=== PATIENT | female | born 1930 | race Caucasian/White ===

== ENCOUNTER → 2016-09-22 | Outpatient (CLI) | payer MEDICARE, OTHER | LOC: MW.CHIM 08:00 | CPT/HCPCS: 99214 ==

== ENCOUNTER → 2016-09-25 | Outpatient (CLI) | payer MEDICARE, OTHER | LOC: MW.CHIM 13:30 | CPT/HCPCS: G0463 ==

== ENCOUNTER → 2016-10-17 | Outpatient (CLI) | payer MEDICARE, OTHER ==
--- NOTE | 2016-10-17 14:23 | CR ---
EXAMINATION: Two-view chest (PA and Lateral views). HISTORY: Atrial fibrillation. FINDINGS: The trachea is midline. The heart is borderline in size. The cardiomediastinal silhouette is within normal limits. No pulmonary infiltrates, effusions or pneumothorax. Osseous structures appear osteopenic. IMPRESSION: No acute cardiopulmonary process.
== END ==
LOC: MW.CHIM 13:01
PROVIDERS: ATTEND Internal Medicine
DX: I48.91 Unspecified atrial fibrillation (principal); I10 Essential (primary) hypertension; E11.9 Type 2 diabetes mellitus without complications; I50.9 Heart failure, unspecified; I12.9 Hypertensive chronic kidney disease with stage 1 through stage 4 chronic kidney disease, or unspecified chronic kidney disease; M19.90 Unspecified osteoarthritis, unspecified site; E78.5 Hyperlipidemia, unspecified; R26.2 Difficulty in walking, not elsewhere classified
CPT/HCPCS: 36415; 71020; 71020-26; 80053; 80061; 83036; 83880; 85025; 99214

== ENCOUNTER → 2016-10-19 | Outpatient (CLI) | payer MEDICARE, OTHER ==
--- NOTE | 2016-10-19 14:38 | CR ---
EXAMINATION: Left shoulder HISTORY: Pain COMPARISON: None TECHNIQUE: 3 views FINDINGS/IMPRESSION: The left humerus is high riding with severe glenohumeral osteoarthritic changes . Mild acromioclavicular osteoarthritic changes are noted. No fracture or acute osseous abnormality.
--- NOTE | 2016-10-19 14:43 | CR ---
EXAMINATION: Pelvis and left hip HISTORY: Pain COMPARISON: 11/02/2014 TECHNIQUE: AP pelvis and 2 views of the left hip FINDINGS: There is a linear ossific density noted projecting inferior to the left hip on the AP view s of uncertain etiology. Mild joint space narrowing is noted within the left hip with subchondral sc lerosis. The SI joints are symmetric. Bone mineralization appears normal to slightly osteopenic. The iliopectineal lines are intact. IMPRESSION: 1. Linear ossific density projecting inferior to the left hip on the AP view. This could represent a n avulsion fracture versus soft tissue calcification. 2. Otherwise mild degenerative changes noted within the left hip.
--- NOTE | 2016-10-19 16:00 | CR ---
EXAMINATION: Lumbar spine HISTORY: Left hip pain COMPARISON: None TECHNIQUE: AP and lateral views FINDINGS: There is a trace levocurvature of the lumbar spine. The lumbar vertebral body heights appe ar maintained. There is mild wedging of the T12 vertebral body. There is grade 1 anterolisthesis of L4 on L5 with underlying facet hypertrophy. The visualized osseous structures appear osteopenic. No definite fracture or dislocation. Vascular calcifications are noted. The SI joints are symmetric. IMPRESSION: 1. Osteopenia. 2. Mild to moderate degenerative changes within the lumbar spine. 3. Mild wedging of the T12 vertebral body.
== END ==
LOC: MW.CHORTHO 07:52
PROVIDERS: ATTEND Orthopaedic Surgery
DX: M25.512 Pain in left shoulder (principal); M25.552 Pain in left hip; M53.9 Dorsopathy, unspecified; M43.16 Spondylolisthesis, lumbar region; M12.812 Other specific arthropathies, not elsewhere classified, left shoulder
CPT/HCPCS: 72100; 72100-26; 73030-26-LT; 73030-LT; 73502-26-LT; 73502-LT; 99203

== ENCOUNTER → 2016-10-25 | Outpatient (CLI) | payer MEDICARE, OTHER | LOC: MW.CHIM 08:00 | PROVIDERS: ATTEND Internal Medicine | DX: I48.0 Paroxysmal atrial fibrillation (principal); I50.9 Heart failure, unspecified; Q21.1 Atrial septal defect; Z87.828 Personal history of other (healed) physical injury and trauma | CPT/HCPCS: G0463 ==

== ENCOUNTER 2018-01-25 10:49 | Observation (INO) | payer MEDICARE, OTHER ==
[2018-01-25] MEDS ORDERED: Sodium Chloride 0.9% 2.5 ML Syringe FLUSH PRN (11:04)
[2018-01-25] MEDS ORDERED: Sodium Chloride 0.9% 10 ML Syringe FLUSH PRN (11:04)
[2018-01-25] MEDS ORDERED: Famotidine 20 MG/2 ML SDV IVPUSH ONE (11:04)
[2018-01-25] MEDS ORDERED: Aspirin 81 MG Tab.Chew PO ONE (11:04)
[2018-01-25] MEDS ORDERED: Sodium Chloride 0.9% 1,000 ML IV ONE (11:05)
[2018-01-25] MEDS ORDERED: Nitroglycerin 0.4 MG Tab.SL SL PRN (11:07)
--- NOTE | 2018-01-25 11:07 | EDM.PDOC ---
ED HPI GENERAL MEDICAL PROBLEM - General Chief Complaint: Cardiovascular Problem Stated Complaint: CHEST PAIN Time Seen by Provider: 01/25/18 11:00 Source of Information: Reports: Patient History Limitations: Reports: No Limitations - History of Present Illness INITIAL COMMENTS - FREE TEXT/NARRATIVE: HISTORY AND PHYSICAL: []87-year-old female presents to the emergency room with pressure to her chest History of Present Illness: []Patient states the chest pain started about 10:00 last night she took her regular aspirin 81 mg Pain continued to the night and now presents at 11 AM today complaining just of pressure. Patient states the last time she had chest pressure she was sent to [place] for heart surgery. Review of Systems: As per history of present illness and below otherwise all systems reviewed and negative. Past medical history: As per history of present illness and as reviewed below otherwise noncontributory. Surgical history: As per history of present illness and as reviewed below otherwise noncontributory. Social history: No reported history of drug or alcohol abuse. Family history: As per history of present illness and as reviewed below otherwise noncontributory. Physical exam: HEENT: Atraumatic, normocehpalic, pupils reactive, negative for conjunctival pallor or scleral icterus, mucous membranes moist, throat clear, neck supple, nontender, trachea midline. Lungs: Clear to auscultation, breath sounds equal bilaterally, chest non tender. Heart: S1S2, negative for clicks, rubs, or JVD. Atrial fibrillation. Abdomen: Soft, nondistended, nontender. Negative for masses or hepatossplenmegaly. Negative for costovertebral tenderness. Pelvis: Stable nontender. Genitourinary: Deferred. Rectal: Deferred Extremities: Atraumatic, negative for cords or calf pain. Neurovascular unremarkable. Neuro: Awake, alert, oriented. Cranial nerves II through XII unremarkable. Cerebellum unremarkable. Motor and sensory unremarkable throughout. Exam nonfocal. Discussed this case with Dr. Lopez who is accepted patient for observation on telemetry rule out [place] Discussed with the patient and her son Diagnostics: []EKG CBC CMP amylase lipase chest x-ray troponin Therapeutics: []1 L normal saline 500 bolus and then set at 125 Impression: []Chest pressure Plan: []Refer to observation on telemetry Definitive disposition and diagnosis as appropriate pending reevaluation and review of above. Onset: Sudden Duration: Hour(s): (13) Quality: Reports: Ache, Pressure Severity: Moderate Improves with: Reports: None Worsens with: Reports: None Associated Symptoms: Reports: No Other Symptoms Chest Pain Score (Numeric/FACES): 6 - Related Data Allergies Allergy/AdvReac Type Severity Reaction Status Date / Time No Known Allergies Allergy Verified 01/25/18 11:03 Home Meds: Home Meds Ascorbate Calcium [Vitamin C] 500 mg PO DAILY 11/02/14 [History] Aspirin [Cecilio Chewable Aspirin] 81 mg PO DAILY 11/02/14 [History] Diltiazem HCl [Diltiazem 24Hr ER] 240 mg PO DAILY 11/02/14 [History] Furosemide [Lasix] 20 mg PO DAILY 11/02/14 [History] Latanoprost [Xalatan 0.005% Ophth Soln] 2.5 ml OP BEDTIME 11/02/14 [History] Multivitamin [Multivitamins] 1 each PO DAILY 11/02/14 [History] Potassium Gluconate [Potassium] 595 mg PO DAILY 11/02/14 [History] Ubidecarenone [Coq-10] 100 mg PO DAILY 11/02/14 [History] atorvaSTATin [Lipitor] 20 mg PO ONETIME 11/02/14 [History] Acetaminophen [Tylenol Extra Strength] 500 mg PO Q4H PRN 09/04/16 [History] Ascorbic Acid 500 mg PO DAILY 09/04/16 [History] Aspirin 81 mg PO BRK 09/04/16 [History] Diltiazem [Dilacor XR] 240 mg PO DAILY 09/04/16 [History] Lutein/Minerals/Vit A,C & E [Ocuvite] 1 tab PO DAILY 09/05/16 [History] Metoprolol Tartrate 50 mg PO BID 09/05/16 [History] Benzonatate [Tessalon Perles] 100 mg PO TID PRN #30 cap 09/07/16 [Rx] Levofloxacin [Levaquin] 750 mg PO DAILY #5 tablet 09/07/16 [Rx] Oseltamivir [Tamiflu] 30 mg PO BID #4 bottle 09/07/16 [Rx] guaiFENesin [Mucinex] 600 mg PO BID #14 tab.er 09/07/16 [Rx] Past Medical History HEENT History: Reports: Impaired Vision Cardiovascular History: Reports: Afib, High Cholesterol, Hypertension Respiratory History: Reports: None Genitourinary History: Reports: None [employer] 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: Musculoskeletal History: Reports: Arthritis Neurological History: Reports: None Psychiatric History: Reports: None Endocrine/Metabolic History: Reports: Diabetes, Type II Hematologic History: Reports: None Dermatologic History: Reports: None - Infectious Disease History Infectious Disease History: Reports: C-Difficile, Measles, Mumps, Rubella - Past Surgical History Cardiovascular Surgical History: Reports: Other (See Below) Social & Family History - Family History Family Medical History: Noncontributory - Caffeine Use Caffeine Use: Reports: Coffee, Tea - Living Situation & Occupation Living situation: Reports: with Spouse Occupation: Retired ED ROS GENERAL - Review of Systems Review Of Systems: ROS reveals no pertinent complaints other than HPI. ED EXAM, GENERAL - Physical Exam Exam: See Below (see dictation) EKG INTERPRETATION EKG Date: 01/25/18 Rhythm: A-Fib Comparison: Change From Previous EKG (09/25/16 SR) Course - Vital Signs Last Recorded V/S: Last Vital Signs Temp 36.6 C 01/25/18 10:59 Pulse 106 H 01/25/18 12:03 Resp 18 01/25/18 12:03 BP 167/63 H 01/25/18 12:03 Pulse Ox 95 01/25/18 12:03 - Orders/Labs/Meds Orders: Active Orders 24 hr Category Date Time Status Patient Status [ADT] Stat ADT 01/25/18 12:41 Active Cardiac Monitoring [RC] . DIRECTED Care 01/25/18 11:04 Active EKG Documentation Completion [RC] STAT Care 01/25/18 11:04 Active Pulse Oximetry [RC] ASDIRECTED Care 01/25/18 11:04 Active UA W/MICROSCOPIC [URIN] Stat Lab 01/25/18 11:30 Ordered Nitroglycerin [Nitrostat] Med 01/25/18 11:07 Active 0.4 mg SL Q5M PRN Sodium Chloride 0.9% [Saline Flush] Med 01/25/18 11:04 Active 10 ml FLUSH ASDIRECTED PRN Sodium Chloride 0.9% [Saline Flush] Med 01/25/18 11:04 Active 2.5 ml FLUSH ASDIRECTED PRN Saline Lock Insert [OM.PC] Stat Oth 01/25/18 11:04 Ordered Medication Orders Nitroglycerin (Nitrostat) 0.4 mg SL Q5M PRN PRN Reason: Chest Pain Sodium Chloride (Saline Flush) 10 ml FLUSH ASDIRECTED PRN PRN Reason: Keep Vein Open Sodium Chloride (Saline Flush) 2.5 ml FLUSH ASDIRECTED PRN PRN Reason: Keep Vein Open Labs: Laboratory Tests 01/25/18 01/25/18 01/25/18 Range/Units 11:25 11:25 11:25 WBC 5.64 (4.0-11.0) K/uL RBC 4.29 L (4.30-5.90) M/uL Hgb 13.4 (12.0-16.0) g/dL Hct 40.2 (36.0-46.0) % MCV 93.7 (80.0-98.0) fL MCH 31.2 (27.0-32.0) pg MCHC 33.3 (31.0-37.0) g/dL RDW Std Deviation 46.3 (28.0-62.0) fl RDW Coeff of Emily 14 (11.0-15.0) % Plt Count 262 (150-400) K/uL MPV 10.00 (7.40-12.00) fL Neut % (Auto) 54.8 (48.0-80.0) % Lymph % (Auto) 28.4 (16.0-40.0) % Cavalier % (Auto) 12.6 (0.0-15.0) % Eos % (Auto) 3.7 (0.0-7.0) % Baso % (Auto) 0.5 (0.0-1.5) % Neut # (Auto) 3.1 (1.4-5.7) K/uL Lymph # (Auto) 1.6 (0.6-2.4) K/uL Cavalier # (Auto) 0.7 (0.0-0.8) K/uL Eos # (Auto) 0.2 (0.0-0.7) K/uL Baso # (Auto) 0.0 (0.0-0.1) K/uL Nucleated RBC % 0.0 /100WBC Nucleated RBCs # 0 K/uL INR 1.04 Sodium 141 (136-145) mmol/L Potassium 4.3 (3.5-5.1) mmol/L Chloride 104 (98-107) mmol/L Carbon Dioxide 28.3 (21.0-32.0) mmol/L BUN 32 H (7.0-18.0) mg/dL Creatinine 1.3 H (0.6-1.0) mg/dL Est Cr Clr Drug Dosing TNP Estimated GFR (MDRD) 38.9 ml/min Glucose 115 H (74-106) mg/dL Calcium 9.1 (8.5-10.1) mg/dL Total Bilirubin 0.5 (0.2-1.0) mg/dL AST 21 (15-37) IU/L ALT 15 (14-63) IU/L Alkaline Phosphatase 64 (46-116) U/L Troponin I < 0.050 (0.000-0.056) ng/mL Total Protein 6.7 (6.4-8.2) g/dL Albumin 3.7 (3.4-5.0) g/dL Globulin 3.0 (2.0-3.5) g/dL Albumin/Globulin Ratio 1.2 L (1.3-2.8) Amylase 82 (25-115) U/L Lipase 259 (73-393) U/L Urine Color Urine Appearance Urine pH (5.0-8.0) Ur Specific Maria Stein (1.001-1.035) Urine Protein (NEGATIVE) mg/dL Urine Glucose (UA) (NEGATIVE) mg/dL Urine Ketones (NEGATIVE) mg/dL Urine Occult Blood (NEGATIVE) Urine Nitrite (NEGATIVE) Urine Bilirubin (NEGATIVE) Urine Urobilinogen (<2.0) EU/dL Ur Leukocyte Esterase (NEGATIVE) Urine RBC (0-2/HPF) Urine WBC (0-5/HPF) Ur Epithelial Cells (NONE-FEW) Urine Bacteria (NEGATIVE) 01/25/18 Range/Units 11:30 WBC (4.0-11.0) K/uL RBC (4.30-5.90) M/uL Hgb (12.0-16.0) g/dL Hct (36.0-46.0) % MCV (80.0-98.0) fL MCH (27.0-32.0) pg MCHC (31.0-37.0) g/dL RDW Std Deviation (28.0-62.0) fl RDW Coeff of Emily (11.0-15.0) % Plt Count (150-400) K/uL MPV (7.40-12.00) fL Neut % (Auto) (48.0-80.0) % Lymph % (Auto) (16.0-40.0) % Cavalier % (Auto) (0.0-15.0) % Eos % (Auto) (0.0-7.0) % Baso % (Auto) (0.0-1.5) % Neut # (Auto) (1.4-5.7) K/uL Lymph # (Auto) (0.6-2.4) K/uL Cavalier # (Auto) (0.0-0.8) K/uL Eos # (Auto) (0.0-0.7) K/uL Baso # (Auto) (0.0-0.1) K/uL Nucleated RBC % /100WBC Nucleated RBCs # K/uL INR Sodium (136-145) mmol/L Potassium (3.5-5.1) mmol/L Chloride (98-107) mmol/L Carbon Dioxide (21.0-32.0) mmol/L BUN (7.0-18.0) mg/dL Creatinine (0.6-1.0) mg/dL Est Cr Clr Drug Dosing Estimated GFR (MDRD) ml/min Glucose (74-106) mg/dL Calcium (8.5-10.1) mg/dL Total Bilirubin (0.2-1.0) mg/dL AST (15-37) IU/L ALT (14-63) IU/L Alkaline Phosphatase (46-116) U/L Troponin I (0.000-0.056) ng/mL Total Protein (6.4-8.2) g/dL Albumin (3.4-5.0) g/dL Globulin (2.0-3.5) g/dL Albumin/Globulin Ratio (1.3-2.8) Amylase (25-115) U/L Lipase (73-393) U/L Urine Color YELLOW Urine Appearance CLEAR Urine pH 5.5 (5.0-8.0) Ur Specific Maria Stein 1.010 (1.001-1.035) Urine Protein NEGATIVE (NEGATIVE) mg/dL Urine Glucose (UA) NEGATIVE (NEGATIVE) mg/dL Urine Ketones NEGATIVE (NEGATIVE) mg/dL Urine Occult Blood NEGATIVE (NEGATIVE) Urine Nitrite NEGATIVE (NEGATIVE) Urine Bilirubin NEGATIVE (NEGATIVE) Urine Urobilinogen 0.2 (<2.0) EU/dL Ur Leukocyte Esterase NEGATIVE (NEGATIVE) Urine RBC 0-1 (0-2/HPF) Urine WBC 0-2 (0-5/HPF) Ur Epithelial Cells FEW (NONE-FEW) Urine Bacteria RARE (NEGATIVE) Meds: Medications Generic Name Dose Route Start Last Admin Trade Name Freq PRN Reason Stop Dose Admin Nitroglycerin 0.4 mg 01/25/18 11:07 Nitrostat SL Q5M PRN Chest Pain Sodium Chloride 10 ml 01/25/18 11:04 Saline Flush FLUSH ASDIRECTED PRN Keep Vein Open Sodium Chloride 2.5 ml 01/25/18 11:04 Saline Flush FLUSH ASDIRECTED PRN Keep Vein Open Discontinued Medications Generic Name Dose Route Start Last Admin Trade Name Freq PRN Reason Stop Dose Admin Aspirin 324 mg 01/25/18 11:04 01/25/18 11:34 Aspirin PO 01/25/18 11:05 324 mg ONETIME ONE Administration Famotidine 20 mg 01/25/18 11:04 01/25/18 11:35 Pepcid IVPUSH 01/25/18 11:05 20 mg ONETIME ONE Administration Sodium Chloride 1,000 mls @ 999 mls/hr 01/25/18 11:05 01/25/18 11:34 Normal Saline IV 01/25/18 12:05 999 mls/hr STAT ONE Administration Departure - Departure Time of Disposition: 12:56 Disposition: Refer to Observation Condition: Good Clinical Impression: Chest pain Qualifiers: Chest pain type: unspecified Qualified Code(s): R07.9 - Chest pain, unspecified Afib Qualifiers: Atrial fibrillation type: paroxysmal Qualified Code(s): I48.0 - Paroxysmal atrial fibrillation Referrals: PCP,None [Primary Care Provider] - Forms: ED Department Discharge - My Orders Last 24 Hours: My Active Orders 01/25/18 11:04 Cardiac Monitoring [RC] . DIRECTED EKG Documentation Completion [RC] STAT Pulse Oximetry [RC] ASDIRECTED Sodium Chloride 0.9% [Saline Flush] 10 ml FLUSH ASDIRECTED PRN Sodium Chloride 0.9% [Saline Flush] 2.5 ml FLUSH ASDIRECTED PRN Saline Lock Insert [OM.PC] Stat 01/25/18 11:07 Nitroglycerin [Nitrostat] 0.4 mg SL Q5M PRN 01/25/18 11:30 UA W/MICROSCOPIC [URIN] Stat 01/25/18 12:41 Patient Status [ADT] Stat - Assessment/Plan Last 24 Hours: My Active Orders 01/25/18 11:04 Cardiac Monitoring [RC] . DIRECTED EKG Documentation Completion [RC] STAT Pulse Oximetry [RC] ASDIRECTED Sodium Chloride 0.9% [Saline Flush] 10 ml FLUSH ASDIRECTED PRN Sodium Chloride 0.9% [Saline Flush] 2.5 ml FLUSH ASDIRECTED PRN Saline Lock Insert [OM.PC] Stat 01/25/18 11:07 Nitroglycerin [Nitrostat] 0.4 mg SL Q5M PRN 01/25/18 11:30 UA W/MICROSCOPIC [URIN] Stat 01/25/18 12:41 Patient Status [ADT] Stat
--- NOTE | 2018-01-25 11:31 | CR ---
EXAMINATION: Portable chest radiograph. HISTORY: Chest pressure. Comparison: 10/17/2016. FINDINGS: The trachea is midline. Heart is borderline in size for technique. The cardiomediastinal silhouette i s within normal limits. No pulmonary infiltrates, effusions or pneumothorax. Shoulders are high riding bilaterally consistent with rotator cuff arthropathy. Generalized osteopeni a. IMPRESSION: No acute cardiopulmonary process.
[2018-01-25 12:21] LABS: CHLORIDE,CL 104 mmol/L (98-107); SODIUM,NA 141 mmol/L (136-145)
[2018-01-25] MEDS ORDERED: Ondansetron 4 MG/2 ML SDV IVPUSH PRN (13:41)
[2018-01-25] MEDS ORDERED: Acetaminophen 325 MG Tab PO PRN (13:41)
--- NOTE | 2018-01-25 13:48 | PCM.HP ---
H&P History of Present Illness - General Date of Service: 01/25/18 Admit Problem/Dx: Admission Diagnosis/Problem Admission Diagnosis/Problem Chest pain Source of Information: Patient History Limitations: Reports: No Limitations - History of Present Illness Initial Comments - Free Text/Narative: This 85 year old female with pmh of traumatic subdural hematoma, CKD, HTN, HLP, diet controlled DM, CHF and afib presented to the ED today with complaints of chest pressure and palpitations which started last evening. She took her ASA and didn't feel much better all night and then took her medication this morning and continued to have some shortness of breath, palpitations, and pressure in her chest so she came to be evaluated. SHe denies feeling ill recently and otherwise has been doing well. No abdominal pain, neck pain or urinary symptoms. She reports her leg swelling is at her normal. She has not noticed an increase in weight and blood pressures have remained stable, 130-150/60s at home. In the ED labwork all at baseline. K+ 4.3. BUN 32 and Cr 1.3, which is at baseline. Glucose is 115. UA negative. CXR negative, no congestion is seen. She was not given any medications in the ED for rate control. She was given Pepcid and ASA. BP initially elevated upon arrival at 196/60, then came down to 137/60. She will be admitted for chest pain rule out ACS and afib. PCP, Dr Barrientos and Dr Sullivan for cardiology. I spoke with Dr Sullivan regarding admission. He recommended in rate is now controlled he would NOT change any home medications due to bradycardia caused by higher dose of Diltizem and Metoprolol. No anticoagulation due to hx of subdural hematoma, in which he spoke with patient regarding risk and benefits of anticoagulation and they decided on ASA daily only. Chest Pain Score (Numeric/FACES): 6 - Related Data Allergies/Adverse Reactions: Allergies Allergy/AdvReac Type Severity Reaction Status Date / Time No Known Allergies Allergy Verified 01/25/18 11:03 Home Medications: Home Meds Ascorbate Calcium [Vitamin C] 500 mg PO DAILY 11/02/14 [History] Aspirin [Cecilio Chewable Aspirin] 81 mg PO DAILY 11/02/14 [History] Furosemide [Lasix] 20 mg PO BID 11/02/14 [History] Latanoprost [Xalatan 0.005% Ophth Soln] 2.5 ml OP BEDTIME 11/02/14 [History] Multivitamin [Multivitamins] 1 each PO DAILY 11/02/14 [History] Potassium Gluconate [Potassium] 595 mg PO DAILY 11/02/14 [History] Ubidecarenone [Coq-10] 100 mg PO DAILY 11/02/14 [History] atorvaSTATin [Lipitor] 20 mg PO ONETIME 11/02/14 [History] Acetaminophen [Tylenol Extra Strength] 500 mg PO Q4H PRN 09/04/16 [History] Ascorbic Acid 500 mg PO DAILY 09/04/16 [History] Diltiazem [Dilacor XR] 240 mg PO DAILY 09/04/16 [History] Lansoprazole 30 mg PO DAILY 01/25/18 [History] Lisinopril 5 mg PO DAILY 01/25/18 [History] Past Medical History HEENT History: Reports: Impaired Vision Cardiovascular History: Reports: Afib, High Cholesterol, Hypertension Respiratory History: Reports: None Genitourinary History: Reports: None [employer] History: Reports: Musculoskeletal History: Reports: Arthritis 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) Psychiatric History: Reports: None Endocrine/Metabolic History: Reports: Diabetes, Type II (diet controlled.) Hematologic History: Reports: None Dermatologic History: Reports: None - Infectious Disease History Infectious Disease History: Reports: C-Difficile, Measles, Mumps, Rubella - Past Surgical History Cardiovascular Surgical History: Reports: Other (See Below) Social & Family History - Family History Family Medical History: Noncontributory - Tobacco Use Smoking Status *Q: Never Smoker - Caffeine Use Caffeine Use: Reports: Coffee, Tea - Recreational Drug Use Recreational Drug Use: No - Living Situation & Occupation Living situation: Reports: with Spouse Occupation: Retired H&P Review of Systems - Review of Systems: Review Of Systems: See Below General: Reports: No Symptoms. Denies: Fever, Chills, Malaise, Weakness, Fatigue Pulmonary: Reports: Shortness of Breath. Denies: Wheezing, Cough, Sputum Cardiovascular: Reports: Chest Pain (more pressure like, happens when she has afib.), Palpitations, Dyspnea on Exertion, Edema (at baseline, no increase in). Denies: Orthopnea, Lightheadedness, Syncope Gastrointestinal: Reports: No Symptoms. Denies: Abdominal Pain, Black Stool, Bloody Stool, Decreased Appetite, Nausea, Vomiting Genitourinary: Reports: No Symptoms. Denies: Dysuria, Frequency, Burning, Pain , Retention Musculoskeletal: Reports: No Symptoms. Denies: Neck Pain, Muscle Pain, Muscle Stiffness Skin: Reports: No Symptoms Psychiatric: Reports: No Symptoms. Denies: Confusion Neurological: Reports: No Symptoms. Denies: Headache, Difficulty Walking Hematologic/Lymphatic: Reports: No Symptoms Immunologic: Reports: No Symptoms Exam - Exam Exam: See Below - Vital Signs Vital Signs: Last Vital Signs Temp 97.8 F 01/25/18 10:59 Pulse 66 01/25/18 13:24 Resp 12 01/25/18 13:24 BP 137/60 01/25/18 13:24 Pulse Ox 96 01/25/18 13:24 - Exam Quality Assessment: DVT Prophylaxis (SCDs only). No: Supplemental Oxygen General: Alert, Oriented, Cooperative HEENT: Conjunctiva Clear, Mucosa Moist & [place], Pupils Equal Neck: Supple, Trachea Midline, 2 Lungs: Clear to Auscultation, Normal Respiratory Effort Cardiovascular: Regular Rate, Normal S1, Normal S2, Irregular Rhythm, Systolic Murmur GI/Abdominal Exam: Normal Bowel Sounds, Soft, Non-Tender Back Exam: Normal Inspection, Full Range of Motion, NT Extremities: Normal Inspection, Normal Range of Motion, Non-Tender Neuro Extensive - Mental Status: Alert, Oriented x3, Normal Mood/Affect Neuro Extensive - Motor, Sensory, Reflexes: CN II-XII Intact Psychiatric: Alert, Normal Affect, Normal Mood - Patient Data Lab Results Last 24 hrs: Laboratory Results - last 24 hr 01/25/18 01/25/18 01/25/18 Range/Units 11:25 11:25 11:25 WBC 5.64 (4.0-11.0) K/uL RBC 4.29 L (4.30-5.90) M/uL Hgb 13.4 (12.0-16.0) g/dL Hct 40.2 (36.0-46.0) % MCV 93.7 (80.0-98.0) fL MCH 31.2 (27.0-32.0) pg MCHC 33.3 (31.0-37.0) g/dL RDW Std Deviation 46.3 (28.0-62.0) fl RDW Coeff of Emily 14 (11.0-15.0) % Plt Count 262 (150-400) K/uL MPV 10.00 (7.40-12.00) fL Neut % (Auto) 54.8 (48.0-80.0) % Lymph % (Auto) 28.4 (16.0-40.0) % [place] % (Auto) 12.6 (0.0-15.0) % Eos % (Auto) 3.7 (0.0-7.0) % Baso % (Auto) 0.5 (0.0-1.5) % Neut # (Auto) 3.1 (1.4-5.7) K/uL Lymph # (Auto) 1.6 (0.6-2.4) K/uL [place] # (Auto) 0.7 (0.0-0.8) K/uL Eos # (Auto) 0.2 (0.0-0.7) K/uL Baso # (Auto) 0.0 (0.0-0.1) K/uL Nucleated RBC % 0.0 /100WBC Nucleated RBCs # 0 K/uL INR 1.04 Sodium 141 (136-145) mmol/L Potassium 4.3 (3.5-5.1) mmol/L Chloride 104 (98-107) mmol/L Carbon Dioxide 28.3 (21.0-32.0) mmol/L BUN 32 H (7.0-18.0) mg/dL Creatinine 1.3 H (0.6-1.0) mg/dL Est Cr Clr Drug Dosing TNP Estimated GFR (MDRD) 38.9 ml/min Glucose 115 H (74-106) mg/dL Calcium 9.1 (8.5-10.1) mg/dL Total Bilirubin 0.5 (0.2-1.0) mg/dL AST 21 (15-37) IU/L ALT 15 (14-63) IU/L Alkaline Phosphatase 64 (46-116) U/L Troponin I < 0.050 (0.000-0.056) ng/mL Total Protein 6.7 (6.4-8.2) g/dL Albumin 3.7 (3.4-5.0) g/dL Globulin 3.0 (2.0-3.5) g/dL Albumin/Globulin Ratio 1.2 L (1.3-2.8) Amylase 82 (25-115) U/L Lipase 259 (73-393) U/L Urine Color Urine Appearance Urine pH (5.0-8.0) Ur Specific Jackson (1.001-1.035) Urine Protein (NEGATIVE) mg/dL Urine Glucose (UA) (NEGATIVE) mg/dL Urine Ketones (NEGATIVE) mg/dL Urine Occult Blood (NEGATIVE) Urine Nitrite (NEGATIVE) Urine Bilirubin (NEGATIVE) Urine Urobilinogen (<2.0) EU/dL Ur Leukocyte Esterase (NEGATIVE) Urine RBC (0-2/HPF) Urine WBC (0-5/HPF) Ur Epithelial Cells (NONE-FEW) Urine Bacteria (NEGATIVE) 01/25/18 Range/Units 11:30 WBC (4.0-11.0) K/uL RBC (4.30-5.90) M/uL Hgb (12.0-16.0) g/dL Hct (36.0-46.0) % MCV (80.0-98.0) fL MCH (27.0-32.0) pg MCHC (31.0-37.0) g/dL RDW Std Deviation (28.0-62.0) fl RDW Coeff of Emily (11.0-15.0) % Plt Count (150-400) K/uL MPV (7.40-12.00) fL Neut % (Auto) (48.0-80.0) % Lymph % (Auto) (16.0-40.0) % [place] % (Auto) (0.0-15.0) % Eos % (Auto) (0.0-7.0) % Baso % (Auto) (0.0-1.5) % Neut # (Auto) (1.4-5.7) K/uL Lymph # (Auto) (0.6-2.4) K/uL [place] # (Auto) (0.0-0.8) K/uL Eos # (Auto) (0.0-0.7) K/uL Baso # (Auto) (0.0-0.1) K/uL Nucleated RBC % /100WBC Nucleated RBCs # K/uL INR Sodium (136-145) mmol/L Potassium (3.5-5.1) mmol/L Chloride (98-107) mmol/L Carbon Dioxide (21.0-32.0) mmol/L BUN (7.0-18.0) mg/dL Creatinine (0.6-1.0) mg/dL Est Cr Clr Drug Dosing Estimated GFR (MDRD) ml/min Glucose (74-106) mg/dL Calcium (8.5-10.1) mg/dL Total Bilirubin (0.2-1.0) mg/dL AST (15-37) IU/L ALT (14-63) IU/L Alkaline Phosphatase (46-116) U/L Troponin I (0.000-0.056) ng/mL Total Protein (6.4-8.2) g/dL Albumin (3.4-5.0) g/dL Globulin (2.0-3.5) g/dL Albumin/Globulin Ratio (1.3-2.8) Amylase (25-115) U/L Lipase (73-393) U/L Urine Color YELLOW Urine Appearance CLEAR Urine pH 5.5 (5.0-8.0) Ur Specific Jackson 1.010 (1.001-1.035) Urine Protein NEGATIVE (NEGATIVE) mg/dL Urine Glucose (UA) NEGATIVE (NEGATIVE) mg/dL Urine Ketones NEGATIVE (NEGATIVE) mg/dL Urine Occult Blood NEGATIVE (NEGATIVE) Urine Nitrite NEGATIVE (NEGATIVE) Urine Bilirubin NEGATIVE (NEGATIVE) Urine Urobilinogen 0.2 (<2.0) EU/dL Ur Leukocyte Esterase NEGATIVE (NEGATIVE) Urine RBC 0-1 (0-2/HPF) Urine WBC 0-2 (0-5/HPF) Ur Epithelial Cells FEW (NONE-FEW) Urine Bacteria RARE (NEGATIVE) Result Diagrams: 01/25/18 11:25 01/25/18 11:25 EKG INTERPRETATION EKG Date: 01/25/18 Rhythm: A-Fib Rate (Beats/Min): 93 QRS: Normal ST-T: Normal QT: Normal *Q Meaningful Use (ADM) - VTE *Q VTE Pharmacological Contraindications *Q: Risk of Bleeding - Problem List (1) Afib SNOMED Code(s): 98524805 ICD Code: I48.91 - UNSPECIFIED ATRIAL FIBRILLATION Status: Chronic Current Visit: Yes Qualifiers: Atrial fibrillation type: paroxysmal Qualified Code(s): I48.0 - Paroxysmal atrial fibrillation (2) Chest pain SNOMED Code(s): 50261111 ICD Code: R07.9 - CHEST PAIN, UNSPECIFIED Status: Acute Current Visit: Yes Qualifiers: Chest pain type: unspecified Qualified Code(s): R07.9 - Chest pain, unspecified (3) CKD (chronic kidney disease) SNOMED Code(s): 663055293 ICD Code: N18.9 - CHRONIC KIDNEY DISEASE, UNSPECIFIED Status: Chronic Current Visit: Yes (4) Hx of traumatic subdural hematoma SNOMED Code(s): 211312448, 866479422 ICD Code: Z87.828 - PERSONAL HISTORY OF OTH (HEALED) PHYSICAL INJURY AND TRAUMA Status: Chronic Current Visit: Yes (5) CHF (congestive heart failure) SNOMED Code(s): 05660506 ICD Code: I50.9 - HEART FAILURE, UNSPECIFIED Status: Chronic Current Visit: No Qualifiers: Qualified Code(s): I50.9 - Heart failure, unspecified (6) DM type 2 (diabetes mellitus, type 2) SNOMED Code(s): 49315259 ICD Code: E11.9 - TYPE 2 DIABETES MELLITUS WITHOUT COMPLICATIONS Status: Chronic Current Visit: No Qualifiers: Diabetes mellitus prison insulin use: without termite inspector use Diabetes mellitus complication status: without complication Qualified Code(s): E11.9 - Type 2 diabetes mellitus without complications (7) HTN (hypertension) SNOMED Code(s): 72259612 ICD Code: I10 - ESSENTIAL (PRIMARY) HYPERTENSION Status: Chronic Current Visit: No Qualifiers: Hypertension type: essential hypertension Qualified Code(s): I10 - Essential (primary) hypertension (8) HLD (hyperlipidemia) SNOMED Code(s): 37579175 ICD Code: E78.5 - HYPERLIPIDEMIA, UNSPECIFIED Status: Chronic Current Visit: Yes Problem List Initiated/Reviewed/Updated: Yes Orders Last 24hrs: Active Orders 24 hr Category Date Time Status Patient Status [ADT] Stat ADT 01/25/18 12:41 Active Cardiac Monitoring [RC] . DIRECTED Care 01/25/18 11:04 Active EKG Documentation Completion [RC] STAT Care 01/25/18 11:04 Active Oxygen Therapy [RC] PRN Care 01/25/18 13:41 Active Pulse Oximetry [RC] ASDIRECTED Care 01/25/18 11:04 Active Telemetry Monitoring [Cardiac Monitoring] [RC] . Care 01/25/18 13:42 Active DIRECTED Up With Assistance [RC] ASDIRECTED Care 01/25/18 13:41 Active VTE/DVT Education [RC] PER UNIT ROUTINE Care 01/25/18 13:41 Active Vital Signs [RC] Q4H Care 01/25/18 13:41 Active Heart Healthy Diet [DIET] Diet 01/25/18 Lunch Active MAGNESIUM [CHEM] Routine Lab 01/25/18 13:45 Ordered TROPONIN I [CHEM] Q6H Lab 01/25/18 17:30 Ordered TROPONIN I [CHEM] Q6H Lab 01/25/18 23:30 Ordered UA W/MICROSCOPIC [URIN] Stat Lab 01/25/18 11:30 Ordered Acetaminophen [Tylenol] Med 01/25/18 13:41 Ordered 650 mg PO Q4H PRN Nitroglycerin [Nitrostat] Med 01/25/18 11:07 Active 0.4 mg SL Q5M PRN Ondansetron [Zofran] Med 01/25/18 13:41 Ordered 4 mg IVPUSH Q4H PRN Sodium Chloride 0.9% [Saline Flush] Med 01/25/18 11:04 Active 10 ml FLUSH ASDIRECTED PRN Sodium Chloride 0.9% [Saline Flush] Med 01/25/18 11:04 Active 2.5 ml FLUSH ASDIRECTED PRN Saline Lock Insert [OM.PC] Stat Oth 01/25/18 11:04 Ordered Medication Orders Acetaminophen (Tylenol) 650 mg PO Q4H PRN PRN Reason: Pain (mild 1-3) Nitroglycerin (Nitrostat) 0.4 mg SL Q5M PRN PRN Reason: Chest Pain Ondansetron HCl (Zofran) 4 mg IVPUSH Q4H PRN PRN Reason: Nausea Sodium Chloride (Saline Flush) 10 ml FLUSH ASDIRECTED PRN PRN Reason: Keep Vein Open Sodium Chloride (Saline Flush) 2.5 ml FLUSH ASDIRECTED PRN PRN Reason: Keep Vein Open Assessment/Plan Comment:: This 87 year old female admitted with chest pressure, rule out ACS and afib 1. Chest pressure: Likely secondary to Afib with RVR, which is now rate controlled and no longer having chest pressure. Trend troponins and monitor on telemetry 2. Afib: Rate controlled, on telemetry rate is in the 60s. As previously mentioned in HPI, Dr Sullivan recommends no adjustment to medication if rate controlled. COntinue Diltizem 120 mg daily, she took this am. Dr Graham to follow up in the clinic. Monitor on tele. No anticoagulation besides ASA due to hx of traumatic subdural hematoma. 3. HTN: Continue Lisinopril 5 mg daily, stable and controlled 4. Diet controlled DM: Stable. ADA heart healthy diet. 5. CKD: Stable. Monitor. 6. CHF: Chronic and stable. Continue Lasix 20 mg BID. VTE prophylaxis: SCDs only. ambulation Dispo: 1 day
[2018-01-25] MEDS: Furosemide 40 MG/4 ML VIAL IVPUSH SCH (20:38)
[2018-01-25] MEDS: atorvaSTATin 20 MG Tab PO SCH ×2 (20:38→21:13)
[2018-01-25] MEDS ORDERED: Latanoprost 0.005% Ophth Soln 2.5 ML Bottle EYEBOTH SCH (21:00)
[2018-01-25] MEDS ORDERED: Furosemide 20 MG Tab PO SCH (21:00)
[2018-01-25] MEDS ORDERED: Apixaban 5 MG Tab PO ONE (23:18)
[2018-01-26] MEDS ORDERED: Aspirin 81 MG Tab.Chew PO SCH ×2 (09:00→21:00)
[2018-01-26] MEDS ORDERED: Diltiazem 120 MG Cap.CD PO SCH (09:00)
[2018-01-26] MEDS ORDERED: Lisinopril 5 MG Tab PO SCH (09:00)
[2018-01-26] MEDS ORDERED: atorvaSTATin 10 MG Tab PO SCH (09:00)
[2018-01-26] MEDS ORDERED: Ascorbic Acid 500 MG Tab PO SCH ×2 (09:00)
[2018-01-26] MEDS ORDERED: Multivitamins with Iron/Calcium/Folic Acid/Minerals Tab PO SCH (09:00)
[2018-01-26] MEDS ORDERED: Potassium Chloride 20 MEQ Tab.ER PO SCH (09:00)
[2018-01-26] MEDS ORDERED: Lansoprazole 30 MG Orally Disintegrating Tab.CR PO SCH (09:00)
[2018-01-26] MEDS: Furosemide 40 MG/4 ML VIAL IVPUSH SCH (10:01)
[2018-01-26] MEDS ORDERED: Lactated Ringers 500 ML IV SCH (12:00)
[2018-01-26] MEDS ORDERED: Iopamidol 755 MG/ML 50 ML Bottle IV ONE (13:36)
[2018-01-26 13:38] VITALS: BP 135/63
--- NOTE | 2018-01-26 14:51 | PCM.DCSUM1 ---
Discharge Summary - Hospital Course Diagnosis: Stroke: No - Discharge Data Discharge Disposition: Home, Self-Care 01 Condition: Stable - Discharge Diagnosis/Problem(s) (1) Chest pain, rule out acute myocardial infarction SNOMED Code(s): 98922042 ICD Code: R07.9 - CHEST PAIN, UNSPECIFIED Status: Acute Current Visit: Yes (2) Atrial fibrillation by electrocardiogram SNOMED Code(s): 131273354 ICD Code: I48.91 - UNSPECIFIED ATRIAL FIBRILLATION Status: Acute Current Visit: Yes - Patient Instructions Diet: Usual Diet as Tolerated Activity: As Tolerated Showering/Bathing: May Shower - Discharge Plan Prescriptions/Med Rec: Apixaban [Eliquis] 5 mg PO BID 90 Days #180 tablet Home Medications: Home Meds Ascorbate Calcium [Vitamin C] 500 mg PO DAILY 11/02/14 [History] Aspirin [Cecilio Chewable Aspirin] 81 mg PO DAILY 11/02/14 [History] Furosemide [Lasix] 20 mg PO BID 11/02/14 [History] Latanoprost [Xalatan 0.005% Ophth Soln] 1 drop EYEBOTH BEDTIME 11/02/14 [History ] Multivitamin [Multivitamins] 1 each PO DAILY 11/02/14 [History] Potassium Gluconate [Potassium] 595 mg PO DAILY 11/02/14 [History] Ubidecarenone [Coq-10] 100 mg PO DAILY 11/02/14 [History] atorvaSTATin [Lipitor] 20 mg PO ONETIME 11/02/14 [History] Acetaminophen [Tylenol Extra Strength] 500 mg PO Q4H PRN 09/04/16 [History] Ascorbic Acid 500 mg PO DAILY 09/04/16 [History] Diltiazem HCl [Diltiazem 24Hr ER] 120 mg PO DAILY 01/25/18 [History] Lansoprazole 30 mg PO DAILY 01/25/18 [History] Apixaban [Eliquis] 5 mg PO BID 90 Days #180 tablet 01/26/18 [Rx] Lisinopril [Prinivil] 5 mg PO DAILY tablet 01/26/18 [Rx] Potassium Chloride [Klor-Con M20] 20 meq PO DAILY tab.er 01/26/18 [Rx] atorvaSTATin [Lipitor] 10 mg PO DAILY tablet 01/26/18 [Rx] Patient Handouts: Nonspecific Chest Pain, [id number] Referrals: Martha Sullivan MD [Physician] - 02/06/18 11:30 am Rafael Barrientos MD [Physician] - 01/29/18 1:00 pm - Patient Data Vitals - Most Recent: Last Vital Signs Temp 97.9 F 01/26/18 12:00 Pulse 82 01/26/18 12:00 Resp 14 01/26/18 12:00 BP 135/63 01/26/18 12:00 Pulse Ox 95 01/26/18 12:00 Weight - Most Recent: 160 lb 3.2 oz I&O - Last 24 hours: Intake & Output 01/25/18 01/26/18 01/26/18 22:59 06:59 14:59 Intake Total 150 390 500 Output Total 300 1600 Balance -150 -1210 500 Lab Results - Last 24 hrs: Laboratory Results - last 24 hr 01/25/18 01/25/18 01/25/18 Range/Units 17:30 19:28 19:28 WBC (4.0-11.0) K/uL RBC (4.30-5.90) M/uL Hgb (12.0-16.0) g/dL Hct (36.0-46.0) % MCV (80.0-98.0) fL MCH (27.0-32.0) pg MCHC (31.0-37.0) g/dL RDW Std Deviation (28.0-62.0) fl RDW Coeff of Emily (11.0-15.0) % Plt Count (150-400) K/uL MPV (7.40-12.00) fL Neut % (Auto) (48.0-80.0) % Lymph % (Auto) (16.0-40.0) % Sharp % (Auto) (0.0-15.0) % Eos % (Auto) (0.0-7.0) % Baso % (Auto) (0.0-1.5) % Neut # (Auto) (1.4-5.7) K/uL Lymph # (Auto) (0.6-2.4) K/uL Sharp # (Auto) (0.0-0.8) K/uL Eos # (Auto) (0.0-0.7) K/uL Baso # (Auto) (0.0-0.1) K/uL Nucleated RBC % /100WBC Nucleated RBCs # K/uL D-Dimer, Quantitative 1.94 H (0.0-0.52) mg/LFEU Sodium (136-145) mmol/L Potassium (3.5-5.1) mmol/L Chloride (98-107) mmol/L Carbon Dioxide (21.0-32.0) mmol/L BUN (7.0-18.0) mg/dL Creatinine (0.6-1.0) mg/dL Est Cr Clr Drug Dosing mL/min Estimated GFR (MDRD) ml/min Glucose (74-106) mg/dL Calcium (8.5-10.1) mg/dL Magnesium (1.8-2.4) mg/dL Troponin I < 0.050 (0.000-0.056) ng/mL B-Natriuretic Peptide 880 H (<100) PG/ML 01/26/18 01/26/18 01/26/18 Range/Units 00:28 05:51 05:51 WBC 5.54 (4.0-11.0) K/uL RBC 4.12 L (4.30-5.90) M/uL Hgb 12.7 (12.0-16.0) g/dL Hct 38.4 (36.0-46.0) % MCV 93.2 (80.0-98.0) fL MCH 30.8 (27.0-32.0) pg MCHC 33.1 (31.0-37.0) g/dL RDW Std Deviation 46.0 (28.0-62.0) fl RDW Coeff of Emily 14 (11.0-15.0) % Plt Count 255 (150-400) K/uL MPV 10.20 (7.40-12.00) fL Neut % (Auto) 53.1 (48.0-80.0) % Lymph % (Auto) 29.6 (16.0-40.0) % Sharp % (Auto) 12.8 (0.0-15.0) % Eos % (Auto) 4.0 (0.0-7.0) % Baso % (Auto) 0.5 (0.0-1.5) % Neut # (Auto) 2.9 (1.4-5.7) K/uL Lymph # (Auto) 1.6 (0.6-2.4) K/uL Sharp # (Auto) 0.7 (0.0-0.8) K/uL Eos # (Auto) 0.2 (0.0-0.7) K/uL Baso # (Auto) 0.0 (0.0-0.1) K/uL Nucleated RBC % 0.0 /100WBC Nucleated RBCs # 0 K/uL D-Dimer, Quantitative (0.0-0.52) mg/LFEU Sodium 141 (136-145) mmol/L Potassium 4.1 (3.5-5.1) mmol/L Chloride 106 (98-107) mmol/L Carbon Dioxide 26.2 (21.0-32.0) mmol/L BUN 31 H (7.0-18.0) mg/dL Creatinine 1.2 H (0.6-1.0) mg/dL Est Cr Clr Drug Dosing 27.73 mL/min Estimated GFR (MDRD) 42.7 ml/min Glucose 115 H (74-106) mg/dL Calcium 8.9 (8.5-10.1) mg/dL Magnesium 1.8 (1.8-2.4) mg/dL Troponin I < 0.050 (0.000-0.056) ng/mL B-Natriuretic Peptide (<100) PG/ML Med Orders - Current: Current Medications Acetaminophen (Tylenol) 650 mg PO Q4H PRN PRN Reason: Pain (mild 1-3) Apixaban (Eliquis) 5 mg PO BID [facility] Ascorbic Acid (Vitamin C) 500 mg PO DAILY [facility] Last Admin: 01/26/18 10:00 Dose: 500 mg Aspirin (Aspirin) 81 mg PO BEDTIME [facility] Atorvastatin Calcium (Lipitor) 10 mg PO DAILY [facility] Last Admin: 01/26/18 10:00 Dose: 10 mg Diltiazem HCl (Cardizem Cd) 120 mg PO DAILY [facility] Last Admin: 01/26/18 10:00 Dose: 120 mg Furosemide (Lasix) 40 mg IVPUSH BID [facility] Last Admin: 01/26/18 10:01 Dose: 40 mg Lactated Ringer's (Ringers, Lactated) 500 mls @ 999 mls/hr IV ASDIRECTED [facility] Last Admin: 01/26/18 12:07 Dose: 999 mls/hr Lansoprazole (Prevacid Solutab) 30 mg PO DAILY [facility] Last Admin: 01/26/18 09:59 Dose: 30 mg Lisinopril (Prinivil) 5 mg PO DAILY [facility] Last Admin: 01/26/18 10:00 Dose: 5 mg Multivitamins/Minerals (Thera M Plus) 1 tab PO DAILY [facility] Last Admin: 01/26/18 10:00 Dose: 1 tab Nitroglycerin (Nitrostat) 0.4 mg SL Q5M PRN PRN Reason: Chest Pain Ondansetron HCl (Zofran) 4 mg IVPUSH Q4H PRN PRN Reason: Nausea Ubidecarenone 100 Mg 1 each PO DAILY [facility] Latanoprost 0.005% Ophth Soln 2.5 Ml Bottle 0 each EYEBOTH BEDTIME [facility] Potassium Chloride (Klor-Con M20) 20 meq PO DAILY [facility] Last Admin: 01/26/18 09:59 Dose: 20 meq Sodium Chloride (Saline Flush) 10 ml FLUSH ASDIRECTED PRN PRN Reason: Keep Vein Open Sodium Chloride (Saline Flush) 2.5 ml FLUSH ASDIRECTED PRN PRN Reason: Keep Vein Open Discontinued Medications Apixaban (Eliquis) 5 mg PO ONETIME ONE Stop: 01/25/18 23:19 Last Admin: 01/25/18 23:58 Dose: 5 mg Aspirin (Aspirin) 324 mg PO ONETIME ONE Stop: 01/25/18 11:05 Last Admin: 01/25/18 11:34 Dose: 324 mg Aspirin (Aspirin) 81 mg PO DAILY [facility] Last Admin: 01/26/18 10:01 Dose: Not Given Atorvastatin Calcium (Lipitor) 20 mg PO BEDTIME [facility] Last Admin: 01/25/18 21:13 Dose: Not Given Famotidine (Pepcid) 20 mg IVPUSH ONETIME ONE Stop: 01/25/18 11:05 Last Admin: 01/25/18 11:35 Dose: 20 mg Furosemide (Lasix) 20 mg PO BID [facility] Sodium Chloride (Normal Saline) 1,000 mls @ 999 mls/hr IV STAT ONE Stop: 01/25/18 12:05 Last Admin: 01/25/18 11:34 Dose: 999 mls/hr Iopamidol (Isovue-370 (76%)) 50 ml IV ONETIME ONE Stop: 01/26/18 13:37 Last Admin: 01/26/18 13:37 Dose: 50 ml Latanoprost (Xalatan 0.005% Ophth Soln) 0 ml EYEBOTH BEDTIME [facility] Last Admin: 01/25/18 22:15 Dose: 1 drop *Q Meaningful Use (DIS) - VTE *Q VTE Pharmacological Contraindications *Q: Risk of Bleeding
[2018-01-26] MEDS ORDERED: Apixaban 5 MG Tab PO SCH (21:00)
[2018-01-26] MEDS ORDERED: Latanoprost 0.005% Ophth Soln 2.5 ML Bottle EYEBOTH SCH (21:00)
--- NOTE | 2018-01-26 22:25 | PCM.SN ---
- Free Text/Narrative Note: [id number]
--- NOTE | 2018-01-28 08:35 | DISCH ---
DATE OF DISCHARGE: 01/26/2018 PRIMARY CARE PHYSICIAN: Rafael Barrientos DIAGNOSES AT ADMISSION: 1. Atrial fibrillation. 2. Chest pain. 3. Chronic kidney disease. 4. History of traumatic subdural hematoma. 5. Congestive heart failure. 6. Diabetes mellitus type 2. 7. Hypertension. 8. Hyperlipidemia. 9. Chest pressure, rule out acute coronary syndrome. DIAGNOSES AT DISCHARGE: She was discharged with diagnoses of, 1. Chest pain, rule out acute coronary syndrome. 2. Atrial fibrillation, by electrocardiogram. 3. Congestive heart failure. 4. Chronic kidney disease. 5. History of traumatic subdural hematoma. 6. Diabetes type 2, diet controlled, without complication. 7. Hypertension. 8. Hyperlipidemia. HISTORY OF PRESENT ILLNESS: The patient is an 87-year-old female with past medical history of traumatic subdural hematoma; CKD; hypertension; hyperlipidemia; diabetes mellitus, diet controlled; CHF; and atrial fibrillation. Presented to the Emergency Department with complaints of chest pressure and palpitations, which started last evening. She took her aspirin and did not seem much better all night and then took her medication this morning, and continued to have some shortness of breath, palpitations, and pressure in her chest, so she came into be evaluated. She denies feeling ill recently, and otherwise had been doing well. No abdominal pain. Neck pain. No urinary symptoms. She reports leg swelling, it is at her normal. She had not noticed an increase in her weight. Her blood pressure has remained stable 100/60 to 150/60 at home. In the Emergency Department. The lab work was at baseline. Chest x-ray was negative, no congestion was seen. She was not given any medication in the emergency room for rate control. She was given Pepcid. Also, BP initially was elevated upon arrival at 196/60, then came down to 137/60. She was admitted for chest pain, rule out acute coronary syndrome; and atrial fibrillation. HOSPITAL COURSE: The patient was admitted to the hospital with chest pressure, rule out acute coronary syndrome. I had ordered BNP, which was 880, and her D-dimer was elevated at 1.94. Discussed with the patient, and she wanted to be anticoagulated with Eliquis. I have started the patient on Eliquis 5 mg p.o. b.i.d. Due to the fact that she had the chest pressure the night before, throughout the night, I had ordered a D-dimer, which was elevated. I proceeded with a CT pulmonary angiogram, which was negative. Due to elevation in BNP and symptoms of chest pressure and dyspnea at night. I have started the patient on Lasix 40 mg p.o. b.i.d., and the patient diuresed significantly, and had balance -2016, and her pedal edema resolved. Prior to being started on Eliquis, she had a CT of the head, which was negative for any acute process in the brain. PHYSICAL EXAMINATION: HEENT: The patient's head atraumatic and normocephalic. Pupils are equally reactive to light. NECK: Supple. No thyromegaly. No lymphadenopathy. HEART: S1 and S2. Irregular rhythm and rate. LUNGS: Clear to auscultation bilaterally. ABDOMEN: Soft and nontender. Positive bowel sounds. EXTREMITIES: No edema. DISCHARGE MEDICATIONS: The patient was discharged home on her home medication and Eliquis 5 mg p.o. b.i.d. was added to her regimen. DIET AT DISCHARGE: Diabetic diet. ACTIVITIES: As tolerated. FOLLOWUP: The patient was given followup with Dr. Sullivan and with Dr. Barrientos. ELAINE / MCKINLEY /[id number]
--- NOTE | 2018-01-28 17:06 | CT ---
EXAM DATE: 01/25/18 PATIENT'S AGE: 87 Patient: JAYMIE WHEELER Facility: [place], [place] Site . Site : 1930 Study: CT Head [id number]/29/2018 9:00:33 PM Ordering Physician: John Long Final Report: CT HEAD DATE: 01/25/2018 CLINICAL HISTORY: Patient with history of subdural hemorrhage. TECHNIQUE: Standard CT scanning of the head was performed. COMPARISON: None. FINDINGS: There is no intracranial hemorrhage. There is no territorial infarction. There are mild microangiopathic changes. There is diffuse parenchymal volume loss. There is no mass effect or midline shift. The calvarium is unremarkable. The orbits are unremarkable. The paranasal sinuses are unremarkable. The mastoid air cells are unremarkable. The soft tissues are unremarkable. IMPRESSION: 1. No intracranial hemorrhage or territorial infarction. Specifically, there is no evidence of subdural hemorrhage. 2. Mild microangiopathic changes and diffuse parenchymal volume loss. Please note that all CT scans at this facility use dose modulation, iterative reconstruction, and/or weight-based dosing when appropriate to reduce radiation dose to as low as reasonably achievable. Dictated by: Raghu Parker MD @ 01/25/2018 21:04:51 (Electronic Signature) Report Signed by Proxy. [facility]
--- NOTE | 2018-01-28 17:07 | CT ---
EXAM DATE: 01/25/18 PATIENT'S AGE: 87 Patient: JAYMIE WHEELER Facility: [place], [place] Site . Site : 1930 Study: CT Chest Angio [id number]/30/2018 1:35:07 PM Ordering Physician: John Long Final Report: INDICATION: Elevated D-dimer. Chest heaviness. TECHNIQUE: Multiple axial images were obtained from the apices to the diaphragm after administration of 48 mL of Isovue-370 intravenously. Sagittal and coronal re- formatted images were obtained. COMPARISON: None. FINDINGS: There is atelectasis in the dependent portion of the lungs. There is scarring in the lung bases. There is no pleural effusion seen. There is no pulmonary nodule. There is no axillary, mediastinal or hilar adenopathy. There is no pulmonary artery embolism seen. There are degenerative changes in the spine. There are atherosclerotic calcifications. IMPRESSION: 1. No acute abnormality on CT scan of the chest pulmonary artery embolism study. 2. No pulmonary artery embolism seen. 3. Atherosclerotic calcifications and coronary calcifications. Dictated by Miguel Haywood MD @ 01/26/2018 2:05:47 PM Please note that all CT scans at this facility use dose modulation, iterative reconstruction, and/or weight-based dosing when appropriate to reduce radiation dose to as low as reasonably achievable. Dictated by: Miguel Haywood MD @ 01/26/2018 14:05:55 (Electronic Signature) Report Signed by Proxy. [facility]ENTERGladys
== END 2018-01-26 15:42 | disposition home or self-care (01) ==
LOC: MW.ED 10:49 → MW.MS 12:41
PROVIDERS: ADMIT Internal Medicine; ATTEND Internal Medicine
DX: R07.89 Other chest pain (principal); I48.0 Paroxysmal atrial fibrillation; I13.0 Hypertensive heart and chronic kidney disease with heart failure and stage 1 through stage 4 chronic kidney disease, or unspecified chronic kidney disease; E11.22 Type 2 diabetes mellitus with diabetic chronic kidney disease; N18.9 Chronic kidney disease, unspecified; I50.9 Heart failure, unspecified; E78.5 Hyperlipidemia, unspecified; M19.90 Unspecified osteoarthritis, unspecified site; Z87.820 Personal history of traumatic brain injury; Z79.82 Long term (current) use of aspirin; Z79.899 Other long term (current) drug therapy
CPT/HCPCS: 36415; 70450; 71045; 71275; 80048; 80053; 81001; 82150; 83690; 83735; 83880; 84484; 85025; 85379; 85610; 93005; 96360; 99285; A9270; J1940; J7040; J7120; Q9967

== ENCOUNTER 2018-01-27 21:53 | Emergency (ER) | payer MEDICARE, OTHER ==
--- NOTE | 2018-01-27 22:10 | EDM.PDOC ---
ED HPI GENERAL MEDICAL PROBLEM - General Chief Complaint: General Stated Complaint: WEAK Time Seen by Provider: 01/27/18 21:57 Source of Information: Reports: Patient History Limitations: Reports: No Limitations - History of Present Illness INITIAL COMMENTS - FREE TEXT/NARRATIVE: HISTORY AND PHYSICAL: History of present illness: 87-year-old female presenting to the emergency department with chief complaint of lightheadedness starting this morning with recent admission for A. fib with RVR with past medical history of traumatic subdural hematoma, CK D, HTN, HLD, DM diet controlled, CHF, A. fib. Patient was recently discharged from the hospital on 01/26/18. States that this morning she woke up and felt lightheaded. She did not feel dizzy or like the room was spinning. The lightheadedness improved when she sat back down. She also reported multiple episodes of diarrhea the past 3 days. States that this is a long-term problem that she's had for the past 3 years. She does have A. fib but denies any palpitations or feelings of rapid heart rate that she did previously on last admission. She is not on a blood thinner secondary to a previous traumatic subdural hematoma. She does admit to some lower abdominal pain but denies any hematuria or dysuria. States that during her hospitalization they gave her considerable amount of Lasix and got 40 pounds of fluid off. She currently denies any chest pain, palpitations, shortness of breath, syncopal episodes, new focal neurologic deficits. Review of systems: As per history of present illness and below otherwise all systems reviewed and negative. Past medical history: As per history of present illness and as reviewed below otherwise noncontributory. Surgical history: As per history of present illness and as reviewed below otherwise noncontributory. Social history: No reported history of drug or alcohol abuse. Family history: As per history of present illness and as reviewed below otherwise noncontributory. Physical exam: HEENT: Atraumatic, normocephalic, pupils reactive, negative for conjunctival pallor or scleral icterus, mucous membranes moist, throat clear, neck supple, nontender, trachea midline. Lungs: Clear to auscultation, breath sounds equal bilaterally, chest nontender. Heart: S1S2, regular, negative for clicks, rubs, or JVD. Abdomen: Soft, nondistended, mild suprapubic tenderness. Negative for masses or hepatosplenomegaly. Negative for costovertebral tenderness. Pelvis: Stable nontender. Genitourinary: Deferred. Rectal: Deferred. Extremities: Atraumatic, negative for cords or calf pain. Neurovascular unremarkable. Neuro: Awake, alert, oriented. Cranial nerves II through XII unremarkable. Cerebellum unremarkable. Motor and sensory unremarkable throughout. Exam nonfocal. Diagnostics: CBC, CMP, orthostatics, UA/UC troponin, INR, Hemoccult Therapeutics: 500 mL normal saline 1, Rocephin 1 g IV, Impression: Acute cystitis Dehydration Dizziness secondary to volume depletion Plan: CBC, INR, troponin were unremarkable. CMP did reveal acute on chronic kidney injury with a creatinine at 2.4. Urine was positive for acute cystitis. She was given 500 mL normal saline 1 as well as Rocephin 1 g IV for her UTI. She felt significantly improved with fluid hydration and seemed volume depleted on initial exam. I did repeat a BMP which showed improved creatinine at 2.2 after IV fluid hydration. Instructed the patient to only take 20 mg of her Lasix a day for the next 3 days as she normally takes 20 mg twice daily. I suspect she was volume depleted after recent hospitalization and with her acute cystitis became lightheaded secondary to this. I also instructed her to take daily weights to make sure she is not becoming volume overloaded. She should follow- up with her primary care physician as well as Dr. Graham seaport planning manager. Also instructed to return to emergency department if she had any new or worsening symptoms. headache Pain Score (Numeric/FACES): 4 - Related Data Allergies Allergy/AdvReac Type Severity Reaction Status Date / Time No Known Allergies Allergy Verified 01/27/18 22:07 Home Meds: Home Meds Ascorbate Calcium [Vitamin C] 500 mg PO DAILY 11/02/14 [History] Aspirin [Cecilio Chewable Aspirin] 81 mg PO DAILY 11/02/14 [History] Furosemide [Lasix] 20 mg PO BID 11/02/14 [History] Latanoprost [Xalatan 0.005% Ophth Soln] 1 drop EYEBOTH BEDTIME 11/02/14 [History ] Multivitamin [Multivitamins] 1 each PO DAILY 11/02/14 [History] Potassium Gluconate [Potassium] 595 mg PO DAILY 11/02/14 [History] Ubidecarenone [Coq-10] 100 mg PO DAILY 11/02/14 [History] atorvaSTATin [Lipitor] 20 mg PO ONETIME 11/02/14 [History] Acetaminophen [Tylenol Extra Strength] 500 mg PO Q4H PRN 09/04/16 [History] Ascorbic Acid 500 mg PO DAILY 09/04/16 [History] Diltiazem HCl [Diltiazem 24Hr ER] 120 mg PO DAILY 01/25/18 [History] Lansoprazole 30 mg PO DAILY 01/25/18 [History] Apixaban [Eliquis] 5 mg PO BID 90 Days #180 tablet 01/26/18 [Rx] Lisinopril [Prinivil] 5 mg PO DAILY tablet 01/26/18 [Rx] Potassium Chloride [Klor-Con M20] 20 meq PO DAILY tab.er 01/26/18 [Rx] atorvaSTATin [Lipitor] 10 mg PO DAILY tablet 01/26/18 [Rx] Past Medical History HEENT History: Reports: Impaired Vision Cardiovascular History: Reports: Afib, High Cholesterol, Hypertension Respiratory History: Reports: None Genitourinary History: Reports: None [employer] History: Reports: Musculoskeletal History: Reports: Arthritis 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) Psychiatric History: Reports: None Endocrine/Metabolic History: Reports: Diabetes, Type II (diet controlled.) Hematologic History: Reports: None Dermatologic History: Reports: None - Infectious Disease History Infectious Disease History: Reports: C-Difficile, Measles, Mumps, Rubella - Past Surgical History Cardiovascular Surgical History: Reports: Other (See Below) Social & Family History - Family History Family Medical History: Noncontributory - Caffeine Use Caffeine Use: Reports: Coffee, Tea - Living Situation & Occupation Living situation: Reports: with Spouse Occupation: Retired ED ROS GENERAL - Review of Systems Review Of Systems: ROS reveals no pertinent complaints other than HPI. ED EXAM, GENERAL - Physical Exam Exam: See Below Course - Vital Signs Last Recorded V/S: Last Vital Signs Temp 97 F 01/28/18 01:16 Pulse 68 01/28/18 01:59 Resp 16 01/28/18 01:16 BP 114/55 L 01/28/18 01:59 Pulse Ox 96 01/28/18 01:59 - Orders/Labs/Meds Orders: Active Orders 24 hr Category Date Time Status Hemoccult [Fecal Occult Blood Collection] [RC] Care 01/27/18 22:26 Active ASDIRECTED CXR [Chest 1V Frontal] [CR] Stat Exams 01/27/18 22:23 Taken CULTURE URINE [RM] Stat Lab 01/27/18 22:46 Ordered UA W/MICROSCOPIC [URIN] Stat Lab 01/27/18 22:46 Ordered Sodium Chloride 0.9% [Normal Saline] 500 ml Med 01/27/18 23:45 Active IV STAT Medication Orders Sodium Chloride (Normal Saline) 500 mls @ 999 mls/hr IV STAT LIZZ Last Admin: 01/27/18 23:55 Dose: 999 mls/hr Labs: Laboratory Tests 01/27/18 01/27/18 01/27/18 Range/Units 22:10 22:10 22:10 WBC 10.94 (4.0-11.0) K/uL RBC 4.26 L (4.30-5.90) M/uL Hgb 13.4 (12.0-16.0) g/dL Hct 39.8 (36.0-46.0) % MCV 93.4 (80.0-98.0) fL MCH 31.5 (27.0-32.0) pg MCHC 33.7 (31.0-37.0) g/dL RDW Std Deviation 46.9 (28.0-62.0) fl RDW Coeff of Emily 14 (11.0-15.0) % Plt Count 292 (150-400) K/uL MPV 10.40 (7.40-12.00) fL Neut % (Auto) 70.1 (48.0-80.0) % Lymph % (Auto) 19.6 (16.0-40.0) % Marinette % (Auto) 9.1 (0.0-15.0) % Eos % (Auto) 0.8 (0.0-7.0) % Baso % (Auto) 0.4 (0.0-1.5) % Neut # (Auto) 7.7 H (1.4-5.7) K/uL Lymph # (Auto) 2.1 (0.6-2.4) K/uL Marinette # (Auto) 1.0 H (0.0-0.8) K/uL Eos # (Auto) 0.1 (0.0-0.7) K/uL Baso # (Auto) 0.0 (0.0-0.1) K/uL Nucleated RBC % 0.0 /100WBC Nucleated RBCs # 0 K/uL INR 1.03 Sodium 139 (136-145) mmol/L Potassium 5.2 H (3.5-5.1) mmol/L Chloride 104 (98-107) mmol/L Carbon Dioxide 24.4 (21.0-32.0) mmol/L BUN 41 H (7.0-18.0) mg/dL Creatinine 2.4 H (0.6-1.0) mg/dL Est Cr Clr Drug Dosing 13.55 mL/min Estimated GFR (MDRD) 19.2 ml/min Glucose 153 H (74-106) mg/dL Calcium 9.2 (8.5-10.1) mg/dL Total Bilirubin 0.4 (0.2-1.0) mg/dL AST 27 (15-37) IU/L ALT 19 (14-63) IU/L Alkaline Phosphatase 66 (46-116) U/L Troponin I < 0.050 (0.000-0.056) ng/mL Total Protein 6.8 (6.4-8.2) g/dL Albumin 3.9 (3.4-5.0) g/dL Globulin 2.9 (2.0-3.5) g/dL Albumin/Globulin Ratio 1.3 (1.3-2.8) Urine Color Urine Appearance Urine pH (5.0-8.0) Ur Specific Herman (1.001-1.035) Urine Protein (NEGATIVE) mg/dL Urine Glucose (UA) (NEGATIVE) mg/dL Urine Ketones (NEGATIVE) mg/dL Urine Occult Blood (NEGATIVE) Urine Nitrite (NEGATIVE) Urine Bilirubin (NEGATIVE) Urine Ictotest Urine Urobilinogen (<2.0) EU/dL Ur Leukocyte Esterase (NEGATIVE) Urine RBC (0-2/HPF) Urine WBC (0-5/HPF) Ur Epithelial Cells (NONE-FEW) Urine Bacteria (NEGATIVE) 01/27/18 01/28/18 Range/Units 22:46 00:56 WBC (4.0-11.0) K/uL RBC (4.30-5.90) M/uL Hgb (12.0-16.0) g/dL Hct (36.0-46.0) % MCV (80.0-98.0) fL MCH (27.0-32.0) pg MCHC (31.0-37.0) g/dL RDW Std Deviation (28.0-62.0) fl RDW Coeff of Emily (11.0-15.0) % Plt Count (150-400) K/uL MPV (7.40-12.00) fL Neut % (Auto) (48.0-80.0) % Lymph % (Auto) (16.0-40.0) % Marinette % (Auto) (0.0-15.0) % Eos % (Auto) (0.0-7.0) % Baso % (Auto) (0.0-1.5) % Neut # (Auto) (1.4-5.7) K/uL Lymph # (Auto) (0.6-2.4) K/uL Marinette # (Auto) (0.0-0.8) K/uL Eos # (Auto) (0.0-0.7) K/uL Baso # (Auto) (0.0-0.1) K/uL Nucleated RBC % /100WBC Nucleated RBCs # K/uL INR Sodium 140 (136-145) mmol/L Potassium 5.1 (3.5-5.1) mmol/L Chloride 106 (98-107) mmol/L Carbon Dioxide 25.6 (21.0-32.0) mmol/L BUN 50 H (7.0-18.0) mg/dL Creatinine 2.2 H (0.6-1.0) mg/dL Est Cr Clr Drug Dosing 14.79 mL/min Estimated GFR (MDRD) 21.2 ml/min Glucose 123 H (74-106) mg/dL Calcium 8.6 (8.5-10.1) mg/dL Total Bilirubin (0.2-1.0) mg/dL AST (15-37) IU/L ALT (14-63) IU/L Alkaline Phosphatase (46-116) U/L Troponin I (0.000-0.056) ng/mL Total Protein (6.4-8.2) g/dL Albumin (3.4-5.0) g/dL Globulin (2.0-3.5) g/dL Albumin/Globulin Ratio (1.3-2.8) Urine Color YELLOW Urine Appearance SLT CLOUDY Urine pH 5.5 (5.0-8.0) Ur Specific Herman 1.025 (1.001-1.035) Urine Protein TRACE (NEGATIVE) mg/dL Urine Glucose (UA) NEGATIVE (NEGATIVE) mg/dL Urine Ketones TRACE H (NEGATIVE) mg/dL Urine Occult Blood NEGATIVE (NEGATIVE) Urine Nitrite NEGATIVE (NEGATIVE) Urine Bilirubin SMALL H (NEGATIVE) Urine Ictotest NEGATIVE Urine Urobilinogen 0.2 (<2.0) EU/dL Ur Leukocyte Esterase SMALL (NEGATIVE) Urine RBC 1-3 (0-2/HPF) Urine WBC 10-12 (0-5/HPF) Ur Epithelial Cells FEW (NONE-FEW) Urine Bacteria 1+ H (NEGATIVE) Meds: Medications Generic Name Dose Route Start Last Admin Trade Name Freq PRN Reason Stop Dose Admin Sodium Chloride 500 mls @ 999 mls/hr 01/27/18 23:45 01/27/18 23:55 Normal Saline IV 999 mls/hr STAT LIZZ Administration Discontinued Medications Generic Name Dose Route Start Last Admin Trade Name Freq PRN Reason Stop Dose Admin Ceftriaxone Sodium/Dextrose 1 50 mls @ 100 mls/hr 01/28/18 01:37 01/28/18 01: 55 gm/ Premix IV 01/28/18 02:06 100 mls/hr ONETIME ONE Administration Departure - Departure Time of Disposition: 02:32 Disposition: Home, Self-Care 01 Condition: Good Clinical Impression: Acute cystitis without hematuria, Acute kidney injury superimposed on chronic kidney disease, Dehydration - Discharge Information Referrals: PCP,None [Primary Care Provider] - Forms: ED Department Discharge Additional Instructions: My general discharge The following information is given to patients seen in the emergency department who are being discharged to home. This information is to outline your options for follow-up care. We provide all patients seen in our emergency department with a follow-up referral. The need for follow-up, as well as the timing and circumstances, are variable depending upon the specifics of your emergency department visit. If you don't have a primary care physician on staff, we will provide you with a referral. We always advise you to contact your personal physician following an emergency department visit to inform them of the circumstance of the visit and for follow-up with them and/or the need for any referrals to a consulting specialist. The emergency department will also refer you to a specialist when appropriate. This referral assures that you have the opportunity for follow-up care with a specialist. All of these measure are taken in an effort to provide you with optimal care, which includes your follow-up. Under all circumstances we always encourage you to contact your private physician who remains a resource for coordinating your care. When calling for follow-up care, please make the office aware that this follow-up is from your recent emergency room visit. If for any reason you are refused follow-up, please contact the [facility] Emergency Department at and asked to speak to the emergency department charge nurse. [facility] [address] [place] [id number] 1. Take antibiotics as prescribed. 2. Take only 20 mg of Lasix daily for the next 3 days. Then go back to your normal 20 mg of Lasix twice daily. 3. Be sure to check your weight daily and follow-up with her seaport planning manager as well as primary care provider. 4. Return to emergency department if any new or worsening symptoms - My Orders Last 24 Hours: My Active Orders 01/27/18 22:23 CXR [Chest 1V Frontal] [CR] Stat 01/27/18 22:26 Hemoccult [Fecal Occult Blood Collection] [RC] ASDIRECTED 01/27/18 22:46 CULTURE URINE [RM] Stat UA W/MICROSCOPIC [URIN] Stat 01/27/18 23:45 Sodium Chloride 0.9% [Normal Saline] 500 ml IV STAT - Assessment/Plan Last 24 Hours: My Active Orders 01/27/18 22:23 CXR [Chest 1V Frontal] [CR] Stat 01/27/18 22:26 Hemoccult [Fecal Occult Blood Collection] [RC] ASDIRECTED 01/27/18 22:46 CULTURE URINE [RM] Stat UA W/MICROSCOPIC [URIN] Stat 01/27/18 23:45 Sodium Chloride 0.9% [Normal Saline] 500 ml IV STAT
[2018-01-27 22:58] LABS: CHLORIDE,CL 104 mmol/L (98-107); SODIUM,NA 139 mmol/L (136-145)
[2018-01-27] MEDS ORDERED: Sodium Chloride 0.9% 500 ML IV SCH (23:45)
[2018-01-28] MEDS ORDERED: cefTRIAXone 1 GM in Premix Bag 1 BAG IV ONE (01:37)
[2018-01-28 02:29] VITALS: BP 135/63
--- NOTE | 2018-01-28 19:14 | CR ---
EXAM DATE: 01/27/18 PATIENT'S AGE: 87 Patient: JAYMIE WHEELER Facility: [place], [place] Site . Site : 1930 Study: XRay Chest [id number]/1/2018 10:59:41 PM Ordering Physician: Andreas Santiago Final Report: INDICATION: Dizziness TECHNIQUE: Chest 1 view. COMPARISON: None FINDINGS: Cardiovascular and mediastinum: Heart size upper limits of normal. Mediastinum is within normal limits. Lungs and pleural space: Lungs are clear. No sign of infiltrate or mass. No sign of pleural effusion. No pneumothorax. Bones and soft tissues: No significant findings. IMPRESSION: Unremarkable chest. Dictated by Paramjit Kapoor MD @ 01/27/2018 11:28:25 PM Dictated by: Paramjit Kapoor MD @ 01/27/2018 23:28:28 (Electronic Signature) Report Signed by Proxy. [facility]
== END 2018-01-28 02:45 | disposition home or self-care (01) ==
LOC: MW.ED 21:53
DX: N30.00 Acute cystitis without hematuria (principal); N17.9 Acute kidney failure, unspecified; E86.0 Dehydration; I13.0 Hypertensive heart and chronic kidney disease with heart failure and stage 1 through stage 4 chronic kidney disease, or unspecified chronic kidney disease; I50.9 Heart failure, unspecified; N18.9 Chronic kidney disease, unspecified; Z79.899 Other long term (current) drug therapy; E78.00 Pure hypercholesterolemia, unspecified; I48.91 Unspecified atrial fibrillation; E11.22 Type 2 diabetes mellitus with diabetic chronic kidney disease; Z79.82 Long term (current) use of aspirin
CPT/HCPCS: 36415; 71045; 80048; 80053; 81001; 84484; 85025; 85610; 87086; 96361; 96365; 99284; J0696; J7040

== ENCOUNTER 2019-06-25 14:04 | Emergency (ER) | payer MEDICARE, OTHER ==
--- NOTE | 2019-06-25 14:09 | EDM.PDOC ---
ED HPI GENERAL MEDICAL PROBLEM - General Chief Complaint: Trauma Stated Complaint: FELL AND INJURED WRIST Time Seen by Provider: 06/25/19 14:05 - History of Present Illness INITIAL COMMENTS - FREE TEXT/NARRATIVE: HISTORY AND PHYSICAL: History of present illness: Patient is an 88-year-old white female who presents with a concern of mechanical fall that occurred early this morning she injured her left hand and wrist she denies any neck pain or trauma she is on eliquis patient denies chest pain shortness of breath nausea vomiting palpitations or other concern Review of systems: As per history of present illness and below otherwise all systems reviewed and negative. Past medical history: As per history of present illness and as reviewed below otherwise noncontributory. Surgical history: As per history of present illness and as reviewed below otherwise noncontributory. Social history: No reported history of drug or alcohol abuse. Family history: As per history of present illness and as reviewed below otherwise noncontributory. Physical exam: HEENT: Atraumatic, normocephalic, pupils reactive, negative for conjunctival pallor or scleral icterus, mucous membranes moist, throat clear, neck supple, nontender, trachea midline. Lungs: Clear to auscultation, breath sounds equal bilaterally, chest nontender. Heart: S1S2, regular, negative for clicks, rubs, or JVD. Abdomen: Soft, nondistended, nontender. Negative for masses or hepatosplenomegaly. Negative for costovertebral tenderness. Pelvis: Stable nontender. Genitourinary: Deferred. Rectal: Deferred. Extremities: Left wrist and hand have moderate swelling and ecchymosis noted over dorsal aspect of the proximal left hand and wrist limited range of motion secondary to pain neurovascular exam unremarkable. Neuro: Awake, alert, oriented. Cranial nerves II through XII unremarkable. Cerebellum unremarkable. Motor and sensory unremarkable throughout. Exam nonfocal. Diagnostics: X-ray left wrist slashing in CT brain Therapeutics: Posterior mold left wrist sling Impression: #1 observation status post mechanical fall #2 left hand/wrist injury Definitive disposition and diagnosis as appropriate pending reevaluation and review of above. left hand/wrist Pain Score (Numeric/FACES): 8 - Related Data Allergies Allergy/AdvReac Type Severity Reaction Status Date / Time No Known Allergies Allergy Verified 06/25/19 14:09 Home Meds: Home Meds Ascorbate Calcium [Vitamin C] 500 mg PO DAILY 11/02/14 [History] Aspirin [Cecilio Chewable Aspirin] 81 mg PO DAILY 11/02/14 [History] Furosemide [Lasix] 20 mg PO BID 11/02/14 [History] Latanoprost [Xalatan 0.005% Ophth Soln] 1 drop EYEBOTH BEDTIME 11/02/14 [History ] Multivitamin [Multivitamins] 1 each PO DAILY 11/02/14 [History] Potassium Gluconate [Potassium] 595 mg PO DAILY 11/02/14 [History] Ubidecarenone [Coq-10] 100 mg PO DAILY 11/02/14 [History] atorvaSTATin [Lipitor] 20 mg PO ONETIME 11/02/14 [History] Acetaminophen [Tylenol Extra Strength] 500 mg PO Q4H PRN 09/04/16 [History] Ascorbic Acid 500 mg PO DAILY 09/04/16 [History] Diltiazem HCl [Diltiazem 24Hr ER] 120 mg PO DAILY 01/25/18 [History] Lansoprazole 30 mg PO DAILY 01/25/18 [History] Apixaban [Eliquis] 5 mg PO BID 90 Days #180 tablet 01/26/18 [Rx] Lisinopril [Prinivil] 5 mg PO DAILY tablet 01/26/18 [Rx] Potassium Chloride [Klor-Con M20] 20 meq PO DAILY tab.er 01/26/18 [Rx] atorvaSTATin [Lipitor] 10 mg PO DAILY tablet 01/26/18 [Rx] Past Medical History HEENT History: Reports: Impaired Vision Cardiovascular History: Reports: Afib, High Cholesterol, Hypertension Respiratory History: Reports: None Gastrointestinal History: Reports: None Genitourinary History: Reports: None AQUARIST History: Reports: Musculoskeletal History: Reports: Arthritis 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) Psychiatric History: Reports: None Endocrine/Metabolic History: Reports: Diabetes, Type II (diet controlled.) Hematologic History: Reports: None Immunologic History: Reports: None Oncologic (Cancer) History: Reports: None Dermatologic History: Reports: None - Infectious Disease History Infectious Disease History: Reports: C-Difficile, Measles, Mumps, Rubella - Past Surgical History Cardiovascular Surgical History: Reports: Other (See Below) Social & Family History - Family History Family Medical History: Noncontributory - Caffeine Use Caffeine Use: Reports: Coffee, Tea - Living Situation & Occupation Living situation: Reports: with Spouse Occupation: Retired Review of Systems - Review of Systems Review Of Systems: Comprehensive ROS is negative, except as noted in HPI. ED EXAM, GENERAL - Physical Exam Exam: See Below (See dictation) Course - Vital Signs Last Recorded V/S: Last Vital Signs Temp 35.6 C 06/25/19 14:05 Pulse 107 H 06/25/19 14:05 Resp 18 06/25/19 14:05 BP 152/80 H 06/25/19 14:05 Pulse Ox 96 06/25/19 14:05 - Orders/Labs/Meds Orders: Active Orders 24 hr Category Date Time Status Head wo Cont [CT] Stat Exams 06/25/19 14:05 Taken Departure - Departure Time of Disposition: 15:16 Disposition: Home, Self-Care 01 Condition: Good Clinical Impression: Radius fracture - Discharge Information Referrals: Rafael Barrientos MD [Primary Care Provider] - Jacky Cervantes DO [Physician] - 07/03/19 10:45 am Forms: ED Department Discharge Additional Instructions: The following information is given to patients seen in the emergency department who are being discharged to home. This information is to outline your options for follow-up care. We provide all patients seen in our emergency department with a follow-up referral. The need for follow-up, as well as the timing and circumstances, are variable depending upon the specifics of your emergency department visit. If you don't have a primary care physician on staff, we will provide you with a referral. We always advise you to contact your personal physician following an emergency department visit to inform them of the circumstance of the visit and for follow-up with them and/or the need for any referrals to a consulting specialist. The emergency department will also refer you to a specialist when appropriate. This referral assures that you have the opportunity for followup care with a specialist. All of these measure are taken in an effort to provide you with optimal care, which includes your followup. Under all circumstances we always encourage you to contact your private physician who remains a resource for coordinating your care. When calling for followup care, please make the office aware that this follow-up is from your recent emergency room visit. If for any reason you are refused follow-up, please contact the [facility] emergency department at and asked to speak to the emergency department charge nurse. [facility] [address], [address] [place] [address] Posterior mold sling as directed follow-up orthopedic surgery above return as needed as discussed - My Orders Last 24 Hours: My Active Orders 06/25/19 14:05 Head wo Cont [CT] Stat - Assessment/Plan Last 24 Hours: My Active Orders 06/25/19 14:05 Head wo Cont [CT] Stat
[2019-06-25 14:12] VITALS: BP 152/80; PULSE 107
--- NOTE | 2019-06-25 14:41 | CR ---
EXAM DATE: 06/25/19 PATIENT'S AGE: 88 Left hand: Three views left hand were obtained. Comparison: No prior left hand exam. Findings: Distal radial fracture is seen with articular extension and mild articular step-off. Posterior impaction is seen. Degenerative joint space narrowing is noted within the CMC joint of the thumb. Joint space narrowing is scattered within the MCP joints which is most severe within the 2nd digit. Mild joint space narrowing is noted of the DIP and PIP joints. Bony structures are osteoporotic. Degenerative cystic change is noted within the 3rd metacarpal head. Vascular calcification noted within the forearm and wrist. Impression: 1. Distal radial fracture as described above. 2. Osteoporosis and degenerative change. 3. No other acute finding is seen. Diagnostic code #3 This report was dictated in [place] Standard Time Report Signed by Proxy. [facility]
--- NOTE | 2019-06-25 14:42 | CR ---
EXAM DATE: 06/25/19 PATIENT'S AGE: 88 Left wrist: Three views left wrist are obtained. Comparison: No prior wrist exam. Posterior impacted distal radial fracture is seen. There is a fracture line extending into the articular margin which shows slight cortical step-off. Chondrocalcinosis is noted within the triangular fibrocartilage. Severe degenerative change is noted within the CMC joint of the thumb. Vascular calcification is noted. Cyst is noted within the navicular bone. Soft tissue swelling is present. Osteoporosis is noted. Impression: 1. Posteriorly impacted distal radial fracture with articular extension of the fracture line. 2. Osteoporosis and other degenerative change as noted above. 3. Soft tissue swelling. Diagnostic code #3 This report was dictated in [place] Standard Time Report Signed by Proxy. MAUREEN
--- NOTE | 2019-06-25 15:23 | CT ---
EXAM DATE: 06/25/19 PATIENT'S AGE: [address] Technique: Multiple axial sections through the brain were obtained. Intravenous contrast was not utilized. Comparison: Prior head CT exam of 01/25/2018. Findings: Ventricles along with basal cisterns and sulci over the convexities are mildly prominent. Diminished density is noted within portions of the periventricular and subcortical white matter which is compatible with small vessel ischemic demyelination change. Broad-based retention cyst is noted within the right maxillary sinus. Atherosclerotic calcification is seen within the carotid siphon and vertebral vessels. Minimal basal ganglia calcification is seen. No intracranial hemorrhage, midline shift or mass effect is seen. Bone window settings were reviewed which shows no acute calvarial abnormality. Mastoid sinuses show nothing acute. Impression: 1. Senescent change as noted above. 2. Minimal sinus finding which is felt to be chronic. 3. Nothing acute is appreciated on noncontrast head CT exam. Diagnostic code #2 This report was dictated in [place] Standard Time Report Signed by Proxy. [facility]
--- NOTE | 2019-06-25 15:25 | PCM.PRNOTE ---
- Free Text/Narrative Note: Anes Note I was called by Dr Cervantes to visist with Suri regarding possible ORIF left forarm in about 1 week. She has a history of CHF for which she takes Lasix. She also takes Eliquis for AF. Dr Cervantes plans to allow 5 days for the effects of Eliquis to be reversed. I have discussed a [place] Block Anesthesia for this patient, and have told her we will discuss more when time of surgery arrives. Masood Raya [employer]
== END 2019-06-25 16:20 | disposition home or self-care (01) ==
LOC: MW.ED 14:04
DX: S52.502A Unspecified fracture of the lower end of left radius, initial encounter for closed fracture (principal); I48.91 Unspecified atrial fibrillation; E78.00 Pure hypercholesterolemia, unspecified; I10 Essential (primary) hypertension; E11.9 Type 2 diabetes mellitus without complications; Z79.899 Other long term (current) drug therapy; Z79.01 Long term (current) use of anticoagulants; Z79.82 Long term (current) use of aspirin; W18.30XA Fall on same level, unspecified, initial encounter; Y92.009 Unspecified place in unspecified non-institutional (private) residence as the place of occurrence of the external cause
CPT/HCPCS: 70450; 70450-26; 73110-26-LT; 73110-LT; 73130-26-LT; 73130-LT; 99284-25

== ENCOUNTER 2019-08-15 10:29 | Emergency (ER) | payer MEDICARE, OTHER ==
--- NOTE | 2019-08-15 10:39 | EDM.PDOC ---
ED HPI GENERAL MEDICAL PROBLEM - General Chief Complaint: ENT Problem Stated Complaint: NOSE BLEED Time Seen by Provider: 08/15/19 10:38 Source of Information: Reports: Patient History Limitations: Reports: No Limitations - History of Present Illness INITIAL COMMENTS - FREE TEXT/NARRATIVE: HISTORY AND PHYSICAL: History of present illness: Patient is an 88-year-old female who presents to the emergency room with complaints of epistaxis since 9:30 AM. She said she was getting up per her usual routine and went to the bathroom when she felt that both her nostrils were bleeding. She denies any injury, trauma or falls. Has not yet taken her blood pressure medications yet this morning. Patient had just seen Dr. Barrientos yesterday for follow-up of a wrist fracture that is healing "well". She does take Eliquis for atrial fibrillation. States she has not had any excessive bruising or concerns with this medication. Offers no systemic complaints. Review of systems: As per history of present illness and below otherwise all systems reviewed and negative. Past medical history: As per history of present illness and as reviewed below otherwise noncontributory. Surgical history: As per history of present illness and as reviewed below otherwise noncontributory. Social history: See social history for further information Family history: As per history of present illness and as reviewed below otherwise noncontributory. Physical exam: General: Well-developed and well-nourished 88-year-old female. Alert and oriented. Nontoxic-appearing and in no acute distress. HEENT: Atraumatic, normocephalic, pupils equal and reactive bilaterally, negative for conjunctival pallor or scleral icterus, mucous membranes moist, TMs normal bilaterally, throat clear, posterior nasal drip from epistaxis noted , neck supple, nontender, trachea midline. No drooling or trismus noted. No meningeal signs. No hot potato voice noted. Lungs: Clear to auscultation, breath sounds equal bilaterally, chest nontender. Heart: S1S2, regular rate and rhythm without overt murmur Abdomen: Soft, nondistended, nontender. Skin: Anterior nosebleed of the right nostril. Intact, warm, dry. No lesions or rashes noted. Extremities: Atraumatic, moves all extremities per self without difficulty or deficits, negative for cords or calf pain. Neurovascular unremarkable. Neuro: Awake, alert, oriented. Cranial nerves II through XII unremarkable. Cerebellum unremarkable. Motor and sensory unremarkable throughout. Exam nonfocal. Notes: Although she is having blood come from both nares it appears that the right nostril has anterior nosebleed. Even with holding pressure with a nasal clip after 15 minutes it continues. A Rhino Rocket 6.0 was inserted per protocol in the right nostril. Patient tolerated well. Patient waited in our emergency department for 30 to 45 minutes post Rhino Rocket and no breakthrough bleeding was noted. Vital signs have improved; she states she hasn't taken any of her medications yet this morning. Supportive care measures were reviewed and discussed. Voices understanding and is agreeable to plan of care. Denies any further questions or concerns at this time. Diagnostics: None Therapeutics: Rhino Rocket Prescription: None Impression: Epistaxis, right Plan: 1. Avoid any strenuous activity; no blowing nose. 2. Return to the ED anytime tomorrow after 5pm for re-evaluation and possible removal of the rhino rocket 3. If you start bleeding again, become dizzy or lightheaded return to the ED sooner Definitive disposition and diagnosis as appropriate pending reevaluation and review of above. - Related Data Allergies Allergy/AdvReac Type Severity Reaction Status Date / Time No Known Allergies Allergy Verified 08/15/19 10:40 Home Meds: Home Meds Ascorbate Calcium [Vitamin C] 500 mg PO DAILY 11/02/14 [History] Aspirin [Cecilio Chewable Aspirin] 81 mg PO DAILY 11/02/14 [History] Furosemide [Lasix] 20 mg PO BID 11/02/14 [History] Latanoprost [Xalatan 0.005% Ophth Soln] 1 drop EYEBOTH BEDTIME 11/02/14 [History ] Multivitamin [Multivitamins] 1 each PO DAILY 11/02/14 [History] Potassium Gluconate [Potassium] 595 mg PO DAILY 11/02/14 [History] Ubidecarenone [Coq-10] 100 mg PO DAILY 11/02/14 [History] atorvaSTATin [Lipitor] 20 mg PO ONETIME 11/02/14 [History] Acetaminophen [Tylenol Extra Strength] 500 mg PO Q4H PRN 09/04/16 [History] Ascorbic Acid 500 mg PO DAILY 09/04/16 [History] Diltiazem HCl [Diltiazem 24Hr ER] 120 mg PO DAILY 01/25/18 [History] Lansoprazole 30 mg PO DAILY 01/25/18 [History] Apixaban [Eliquis] 5 mg PO BID 90 Days #180 tablet 01/26/18 [Rx] Potassium Chloride [Klor-Con M20] 20 meq PO DAILY tab.er 01/26/18 [Rx] atorvaSTATin [Lipitor] 10 mg PO DAILY tablet 01/26/18 [Rx] lisinopriL [Prinivil] 5 mg PO DAILY tablet 01/26/18 [Rx] Past Medical History HEENT History: Reports: Impaired Vision Cardiovascular History: Reports: Afib, High Cholesterol, Hypertension Respiratory History: Reports: None Gastrointestinal History: Reports: None Genitourinary History: Reports: None [employer] History: Reports: Musculoskeletal History: Reports: Arthritis 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) Psychiatric History: Reports: None Endocrine/Metabolic History: Reports: Diabetes, Type II (diet controlled.) Hematologic History: Reports: None Immunologic History: Reports: None Oncologic (Cancer) History: Reports: None Dermatologic History: Reports: None - Infectious Disease History Infectious Disease History: Reports: C-Difficile, Measles, Mumps, Rubella - Past Surgical History Cardiovascular Surgical History: Reports: Other (See Below) Social & Family History - Family History Family Medical History: Noncontributory - Caffeine Use Caffeine Use: Reports: Coffee, Tea - Living Situation & Occupation Living situation: Reports: with Spouse Occupation: Retired ED ROS ENT - Review of Systems Review Of Systems: Comprehensive ROS is negative, except as noted in HPI. ED EXAM, ENT - Physical Exam Exam: See Below (See dictation) Course - Vital Signs Last Recorded V/S: Last Vital Signs Temp 97.2 F 08/15/19 10:40 Pulse 82 08/15/19 12:02 Resp 15 08/15/19 12:02 BP 197/92 H 08/15/19 12:02 Pulse Ox 95 08/15/19 12:02 - Orders/Labs/Meds Orders: Active Orders 24 hr Category Date Time Status Communication Order [RC] STAT Care 08/15/19 11:46 Active Departure - Departure Time of Disposition: 12:05 Disposition: Home, Self-Care 01 Clinical Impression: Epistaxis - Discharge Information Instructions: Nosebleed, [id number] Referrals: Rafael Barrientos MD [Primary Care Provider] - Forms: ED Department Discharge Additional Instructions: The following information is given to patients seen in the emergency department who are being discharged to home. This information is to outline your options for follow-up care. We provide all patients seen in our emergency department with a follow-up referral. The need for follow-up, as well as the timing and circumstances, are variable depending upon the specifics of your emergency department visit. If you don't have a primary care physician on staff, we will provide you with a referral. We always advise you to contact your personal physician following an emergency department visit to inform them of the circumstance of the visit and for follow-up with them and/or the need for any referrals to a consulting specialist. The emergency department will also refer you to a specialist when appropriate. This referral assures that you have the opportunity for follow-up care with a specialist. All of these measure are taken in an effort to provide you with optimal care, which includes your follow-up. Under all circumstances we always encourage you to contact your private physician who remains a resource for coordinating your care. When calling for follow-up care, please make the office aware that this follow-up is from your recent emergency room visit. If for any reason you are refused follow-up, please contact the [facility] Emergency Department at and asked to speak to the emergency department charge nurse. [facility] [address] [place] [id number] [address] 1. Avoid any strenous activity; no blowing nose. 2. Return to the ED anytime tomorrow after 5pm for re-evaluation and possible removal of the rhino rocket 3. If you start bleeding again, become dizzy or lightheaded return to the ED sooner Sepsis Event Note - Focused Exam Vital Signs: Vital Signs Temp Pulse Resp BP Pulse Ox 08/15/19 12:02 82 15 197/92 H 95 08/15/19 10:40 97.2 F 114 H 16 208/75 H 96 Date Exam was Performed: 08/15/19 Time Exam was Performed: 12:24 - My Orders Last 24 Hours: My Active Orders 08/15/19 11:46 Communication Order [RC] STAT - Assessment/Plan Last 24 Hours: My Active Orders 08/15/19 11:46 Communication Order [RC] STAT
[2019-08-15 12:03] VITALS: BP 197/92; PULSE 82
== END 2019-08-15 12:15 | disposition home or self-care (01) ==
LOC: MW.ED 10:29
DX: R04.0 Epistaxis (principal); I48.91 Unspecified atrial fibrillation; E78.00 Pure hypercholesterolemia, unspecified; I10 Essential (primary) hypertension; E11.9 Type 2 diabetes mellitus without complications; Z79.899 Other long term (current) drug therapy; Z79.82 Long term (current) use of aspirin; Z79.01 Long term (current) use of anticoagulants
CPT/HCPCS: 30901; 30903; 99283; 99283-25

== ENCOUNTER 2019-08-16 17:15 | Emergency (ER) | payer MEDICARE, OTHER ==
[2019-08-16] MEDS ORDERED: traMADol 50 MG Tab PO ONE (17:56)
--- NOTE | 2019-08-16 17:59 | EDM.PDOC ---
ED HPI GENERAL MEDICAL PROBLEM - General Chief Complaint: ENT Problem Stated Complaint: REMOVE NOSE PLUG Time Seen by Provider: 08/16/19 17:31 Source of Information: Reports: Patient History Limitations: Reports: No Limitations - History of Present Illness INITIAL COMMENTS - FREE TEXT/NARRATIVE: HISTORY AND PHYSICAL: History of present illness: Patient is an 88-year-old female who presents to the emergency room today for reevaluation of Rhino Rocket. Patient was seen yesterday in the emergency room for right nare epistaxis. She had a Rhino Rocket placed which she states "for the most part worked" but does still experience some posterior drainage and blood-tinged sputum. Concerned she may need the Rhino Rocket in for a longer period of time. She offers no systemic complaints has been afebrile and has Review of systems: As per history of present illness and below otherwise all systems reviewed and negative. Past medical history: As per history of present illness and as reviewed below otherwise noncontributory. Surgical history: As per history of present illness and as reviewed below otherwise noncontributory. Social history: See social history for further information Family history: As per history of present illness and as reviewed below otherwise noncontributory. Physical exam: General: Well-developed and well-nourished 88-year-old female. Alert and oriented. Nontoxic-appearing no acute distress. HEENT: Atraumatic, normocephalic, pupils equal and reactive bilaterally, negative for conjunctival pallor or scleral icterus, mucous membranes moist, Rhino Rocket is in the right nare no drainage noted anterior or posterior, TMs normal bilaterally, throat clear, neck supple, nontender, trachea midline. No drooling or trismus noted. No meningeal signs. No hot potato voice noted. Lungs: Clear to auscultation, breath sounds equal bilaterally, chest nontender. Heart: S1S2, regular rate and rhythm without overt murmur Abdomen: Soft, nondistended, nontender. Skin: Intact, warm, dry. No lesions or rashes noted. Extremities: Atraumatic, moves all extremities per self without difficulty or deficits, negative for cords or calf pain. Neurovascular unremarkable. Neuro: Awake, alert, oriented. Cranial nerves II through XII unremarkable. Cerebellum unremarkable. Motor and sensory unremarkable throughout. Exam nonfocal. Notes: I was able to insert 2 additional mL's into the Rhino Rocket which stopped the epistaxis. She was allowed to sit for an additional 30 minutes without any breakthrough or posterior drainage. Supportive care measures were reviewed and discussed. Voices understanding and is agreeable to plan of care. Denies any further questions or concerns at this time. Diagnostics: None Therapeutics: None Prescription: None Impression: Encounter for Nasal Packing Removal Plan: 1. Return tomorrow as we discussed for Rhino Rocket removal around lunch hour 2. You can alternate Tylenol and ibuprofen as needed for pain. You stated you had some tramadol you can take that if the pain is moderate to severe. 3. Follow-up with the research associate molecular biology as we discussed. Return to the ED as needed and as discussed. Definitive disposition and diagnosis as appropriate pending reevaluation and review of above. nose Pain Score (Numeric/FACES): 5 - Related Data Allergies Allergy/AdvReac Type Severity Reaction Status Date / Time No Known Allergies Allergy Verified 08/15/19 10:40 Home Meds: Home Meds Ascorbate Calcium [Vitamin C] 500 mg PO DAILY 11/02/14 [History] Aspirin [Cecilio Chewable Aspirin] 81 mg PO DAILY 11/02/14 [History] Furosemide [Lasix] 20 mg PO BID 11/02/14 [History] Latanoprost [Xalatan 0.005% Ophth Soln] 1 drop EYEBOTH BEDTIME 11/02/14 [History ] Multivitamin [Multivitamins] 1 each PO DAILY 11/02/14 [History] Potassium Gluconate [Potassium] 595 mg PO DAILY 11/02/14 [History] Ubidecarenone [Coq-10] 100 mg PO DAILY 11/02/14 [History] atorvaSTATin [Lipitor] 20 mg PO ONETIME 11/02/14 [History] Acetaminophen [Tylenol Extra Strength] 500 mg PO Q4H PRN 09/04/16 [History] Ascorbic Acid 500 mg PO DAILY 09/04/16 [History] Diltiazem HCl [Diltiazem 24Hr ER] 120 mg PO DAILY 01/25/18 [History] Lansoprazole 30 mg PO DAILY 01/25/18 [History] Apixaban [Eliquis] 5 mg PO BID 90 Days #180 tablet 01/26/18 [Rx] Potassium Chloride [Klor-Con M20] 20 meq PO DAILY tab.er 01/26/18 [Rx] atorvaSTATin [Lipitor] 10 mg PO DAILY tablet 01/26/18 [Rx] lisinopriL [Prinivil] 5 mg PO DAILY tablet 01/26/18 [Rx] Past Medical History HEENT History: Reports: Impaired Vision Cardiovascular History: Reports: Afib, High Cholesterol, Hypertension Respiratory History: Reports: None Gastrointestinal History: Reports: None Genitourinary History: Reports: None 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: Musculoskeletal History: Reports: Arthritis 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) Psychiatric History: Reports: None Endocrine/Metabolic History: Reports: Diabetes, Type II Hematologic History: Reports: None Immunologic History: Reports: None Oncologic (Cancer) History: Reports: None Dermatologic History: Reports: None - Infectious Disease History Infectious Disease History: Reports: None - Past Surgical History Head Surgeries/Procedures: Reports: None Social & Family History - Family History Family Medical History: Noncontributory - Tobacco Use Smoking Status *Q: Never Smoker - Caffeine Use Caffeine Use: Reports: Coffee, Tea - Recreational Drug Use Recreational Drug Use: No - Living Situation & Occupation Living situation: Reports: with Spouse Occupation: Retired ED ROS ENT - Review of Systems Review Of Systems: Comprehensive ROS is negative, except as noted in HPI. ED EXAM, ENT - Physical Exam Exam: See Below (See dictation) Course - Vital Signs Last Recorded V/S: Last Vital Signs Temp 98.9 F 08/16/19 17:29 Pulse 100 08/16/19 17:29 Resp 18 08/16/19 17:29 BP 97/70 08/16/19 17:29 Pulse Ox 98 08/16/19 17:29 - Orders/Labs/Meds Meds: Medications Discontinued Medications Generic Name Dose Route Start Last Admin Trade Name Freq PRN Reason Stop Dose Admin Tramadol HCl 50 mg 08/16/19 17:56 Ultram PO 08/16/19 17:57 ONETIME ONE Departure - Departure Time of Disposition: 17:58 Disposition: Home, Self-Care 01 Clinical Impression: Encounter for removal of nasal packing - Discharge Information Referrals: Rafael Barrientos MD [Primary Care Provider] - Forms: ED Department Discharge Additional Instructions: The following information is given to patients seen in the emergency department who are being discharged to home. This information is to outline your options for follow-up care. We provide all patients seen in our emergency department with a follow-up referral. The need for follow-up, as well as the timing and circumstances, are variable depending upon the specifics of your emergency department visit. If you don't have a primary care physician on staff, we will provide you with a referral. We always advise you to contact your personal physician following an emergency department visit to inform them of the circumstance of the visit and for follow-up with them and/or the need for any referrals to a consulting specialist. The emergency department will also refer you to a specialist when appropriate. This referral assures that you have the opportunity for follow-up care with a specialist. All of these measure are taken in an effort to provide you with optimal care, which includes your follow-up. Under all circumstances we always encourage you to contact your private physician who remains a resource for coordinating your care. When calling for follow-up care, please make the office aware that this follow-up is from your recent emergency room visit. If for any reason you are refused follow-up, please contact the [facility] Emergency Department at and asked to speak to the emergency department charge nurse. [facility] [address] [place] [address] [place] [address] 1. Return tomorrow as we discussed for Rhino Rocket removal around lunch hour 2. You can alternate Tylenol and ibuprofen as needed for pain. You stated you had some tramadol you can take that if the pain is moderate to severe. 3. Follow-up with the research associate molecular biology as we discussed. Return to the ED as needed and as discussed. Sepsis Event Note - Evaluation Sepsis Screening Result: No Definite Risk - Focused Exam Vital Signs: Vital Signs Temp Pulse Resp BP Pulse Ox 08/16/19 17:29 98.9 F 100 18 97/70 98 Date Exam was Performed: 08/16/19 Time Exam was Performed: 18:00
[2019-08-16 18:06] VITALS: BP 168/84; PULSE 91
== END 2019-08-16 18:13 | disposition home or self-care (01) ==
LOC: MW.ED 17:15
DX: Z48.00 Encounter for change or removal of nonsurgical wound dressing (principal); I10 Essential (primary) hypertension; E78.00 Pure hypercholesterolemia, unspecified; I48.91 Unspecified atrial fibrillation; E11.9 Type 2 diabetes mellitus without complications; Z79.82 Long term (current) use of aspirin; Z79.899 Other long term (current) drug therapy
CPT/HCPCS: 99283; A9270

== ENCOUNTER 2019-08-17 12:39 | Emergency (ER) | payer MEDICARE, OTHER ==
[2019-08-17 12:56] VITALS: BP 145/66; PULSE 128
[2019-08-17] MEDS ORDERED: Amoxicillin/Clavulanate K 875-125 MG Tab PO ONE (15:27)
[2019-08-17] MEDS ORDERED: traMADol 50 MG Tab PO ONE (15:27)
--- NOTE | 2019-08-17 15:54 | EDM.PDOC ---
ED HPI GENERAL MEDICAL PROBLEM - General Chief Complaint: ENT Problem Stated Complaint: NOSE BLEED Time Seen by Provider: 08/17/19 16:00 Source of Information: Reports: Patient History Limitations: Reports: No Limitations - History of Present Illness INITIAL COMMENTS - FREE TEXT/NARRATIVE: Patient is 88-year-old female on Eliquis for atrial fibrillation presenting for follow-up of nosebleed. Patient reports continued scant bleed from the anterior nares as well as tiny amount of bleeding from the back of the throat. Patient has been here several days in a row for follow-up. Patient has a Rhino Rocket in place with the balloon inflated. Review of systems otherwise negative. I have reviewed the triage vital signs Const: Well nourished, well developed, appears stated age Eyes: PERRL, no conjunctival injection HENT: Rhino Rocket noted in place. No active bleeding noted. Dried blood around the Rhino Rocket. NCAT, Neck supple without meningismus CV: RRR, Warm, well-perfused extremities RESP: CTAB, Unlabored respiratory effort GI: soft, non-tender, non-distended, no masses MSK: No gross deformities appreciated Skin: Warm, dry. No rashes Neuro: Alert, overhead foreman II-XII grossly intact. Sensation and motor function of extremities grossly intact. Psych: Appropriate mood and affect Assessment and plan: 88 year-old female status post epistaxis which is anterior. Scant bleeding continues this does not appear to be a posterior nosebleed. Patient given the option to have it removed here in the emergency department observed for several hours and replaced if needed. The other option was to call the ear nose and throat doctor and be seen in the office tomorrow morning. Patient instructed to return to the emergency department for any acute changes or if unable to get into the ENT clinic. Patient agrees and would rather go to the ENT clinic. nose Pain Score (Numeric/FACES): 6 - Related Data Allergies Allergy/AdvReac Type Severity Reaction Status Date / Time Sulfa (Sulfonamide Allergy Vomiting Verified 08/17/19 12:52 Antibiotics) Home Meds: Home Meds Ascorbate Calcium [Vitamin C] 500 mg PO DAILY 11/02/14 [History] Aspirin [Cecilio Chewable Aspirin] 81 mg PO DAILY 11/02/14 [History] Furosemide [Lasix] 20 mg PO BID 11/02/14 [History] Latanoprost [Xalatan 0.005% Ophth Soln] 1 drop EYEBOTH BEDTIME 11/02/14 [History ] Multivitamin [Multivitamins] 1 each PO DAILY 11/02/14 [History] Potassium Gluconate [Potassium] 595 mg PO DAILY 11/02/14 [History] Ubidecarenone [Coq-10] 100 mg PO DAILY 11/02/14 [History] atorvaSTATin [Lipitor] 20 mg PO ONETIME 11/02/14 [History] Acetaminophen [Tylenol Extra Strength] 500 mg PO Q4H PRN 09/04/16 [History] Ascorbic Acid 500 mg PO DAILY 09/04/16 [History] Diltiazem HCl [Diltiazem 24Hr ER] 120 mg PO DAILY 01/25/18 [History] Lansoprazole 30 mg PO DAILY 01/25/18 [History] Apixaban [Eliquis] 5 mg PO BID 90 Days #180 tablet 01/26/18 [Rx] Potassium Chloride [Klor-Con M20] 20 meq PO DAILY tab.er 01/26/18 [Rx] atorvaSTATin [Lipitor] 10 mg PO DAILY tablet 01/26/18 [Rx] lisinopriL [Prinivil] 5 mg PO DAILY tablet 01/26/18 [Rx] Amoxicillin/Potassium Clav [Augmentin 875-125 Tablet] 1 each PO BID #10 tablet 08/17/19 [Rx] Past Medical History HEENT History: Reports: Impaired Vision Cardiovascular History: Reports: Afib, High Cholesterol, Hypertension Respiratory History: Reports: None Gastrointestinal History: Reports: None Genitourinary History: Reports: None 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: Musculoskeletal History: Reports: Arthritis Neurological History: Reports: Other (See Below) Psychiatric History: Reports: None Endocrine/Metabolic History: Reports: Diabetes, Type II Hematologic History: Reports: None Immunologic History: Reports: None Oncologic (Cancer) History: Reports: None Dermatologic History: Reports: None - Infectious Disease History Infectious Disease History: Reports: None - Past Surgical History Head Surgeries/Procedures: Reports: None Social & Family History - Family History Family Medical History: Noncontributory - Tobacco Use Smoking Status *Q: Never Smoker Second Hand Smoke Exposure: No - Caffeine Use Caffeine Use: Reports: None - Recreational Drug Use Recreational Drug Use: No - Living Situation & Occupation Living situation: Reports: with Spouse Occupation: Retired ED ROS ENT - Review of Systems Review Of Systems: See Below ED EXAM, ENT - Physical Exam Exam: See Below Course - Vital Signs Last Recorded V/S: Last Vital Signs Temp 36.9 C 08/17/19 12:53 Pulse 128 H 08/17/19 12:53 Resp 18 08/17/19 12:53 BP 145/66 H 08/17/19 12:53 Pulse Ox 95 08/17/19 12:53 - Orders/Labs/Meds Meds: Medications Discontinued Medications Generic Name Dose Route Start Last Admin Trade Name Clarence PRN Reason Stop Dose Admin Amoxicillin/Clavulanate Potassium 1 tab 08/17/19 15:27 08/17/19 15:47 Augmentin 875 Mg/125 Mg PO 08/17/19 15:28 1 tab ONETIME ONE Administration Tramadol HCl 50 mg 08/17/19 15:27 08/17/19 15:47 Ultram PO 08/17/19 15:28 50 mg ONETIME ONE Administration Departure - Departure Time of Disposition: 15:54 Disposition: Home, Self-Care 01 Clinical Impression: Epistaxis - Discharge Information Prescriptions: Amoxicillin/Potassium Clav [Augmentin 875-125 Tablet] 1 each PO BID #10 tablet Instructions: Nosebleed, [id number] Referrals: PCP,Unknown [Primary Care Provider] - Rafael Barrientos MD [Physician] - Forms: ED Department Discharge Sepsis Event Note - Evaluation Sepsis Screening Result: No Definite Risk - Focused Exam Vital Signs: Vital Signs Temp Pulse Resp BP Pulse Ox 08/17/19 12:53 36.9 C 128 H 18 145/66 H 95 Date Exam was Performed: 08/17/19 Time Exam was Performed: 18:58
== END 2019-08-17 16:00 | disposition home or self-care (01) ==
LOC: MW.ED 12:39
DX: R04.0 Epistaxis (principal); I10 Essential (primary) hypertension; E11.9 Type 2 diabetes mellitus without complications; E78.00 Pure hypercholesterolemia, unspecified; I48.91 Unspecified atrial fibrillation; M19.90 Unspecified osteoarthritis, unspecified site; Z88.2 Allergy status to sulfonamides; Z79.82 Long term (current) use of aspirin; Z79.899 Other long term (current) drug therapy; Z79.01 Long term (current) use of anticoagulants
CPT/HCPCS: 99283; A9270; 99282

== ENCOUNTER 2020-02-28 12:37 | Emergency (ER) | payer MEDICARE, OTHER ==
--- NOTE | 2020-02-28 12:57 | EDM.PDOC ---
ED HPI GENERAL MEDICAL PROBLEM - General Chief Complaint: General Stated Complaint: COVID TEST Time Seen by Provider: 02/28/20 12:39 Source of Information: Reports: Patient History Limitations: Reports: No Limitations - History of Present Illness INITIAL COMMENTS - FREE TEXT/NARRATIVE: HISTORY AND PHYSICAL: History of present illness: Patient is an 89-year-old female who presents to the emergency room requesting a COVID-19 screening as she has been exposed. She reports that the dry end tester who works in her home recently tested positive for COVID-19. She states she did have an encounter with him approximately 4 to 5 days ago when he was working in her home. He informed her that he tested positive and that she should be evaluated as well. Patient has a past medical history of atrial fibrillation, hypertension, hyperlipidemia, type 2 diabetes Review of systems: As per history of present illness and below otherwise all systems reviewed and negative. Past medical history: As per history of present illness and as reviewed below otherwise noncontributory. Surgical history: As per history of present illness and as reviewed below otherwise noncontributory. Social history: See social history for further information Family history: As per history of present illness and as reviewed below otherwise noncontributory. Physical exam: General: Well developed and well nourished 89-year-old female. Alert and oriented. Nontoxic-appearing and in no acute distress. HEENT: Atraumatic, normocephalic, pupils equal and reactive bilaterally, negative for conjunctival pallor or scleral icterus, mucous membranes moist, TMs normal bilaterally, throat clear, neck supple, nontender, trachea midline. No drooling or trismus noted. No meningeal signs. No hot potato voice noted. Lungs: Clear to auscultation, breath sounds equal bilaterally, chest nontender. Heart: S1S2, regular rate and rhythm without overt murmur Abdomen: Soft, nondistended, nontender. Skin: Intact, warm, dry. No lesions or rashes noted. Extremities: Atraumatic, moves all extremities per self without difficulty or deficits, negative for cords or calf pain. Neurovascular unremarkable. Neuro: Awake, alert, oriented. Cranial nerves II through XII unremarkable. Cerebellum unremarkable. Motor and sensory unremarkable throughout. Exam nonfocal. Notes: Patient is asymptomatic, but due to her risk factors will swab here. Negative test results. We discussed follow up and supportive care measures were reviewed and discussed. Voices understanding and is agreeable to plan of care. Denies any further questions or concerns at this time. Diagnostics: COVID-19 Therapeutics: None Prescription: None Impression: COVID testing, asymptomatic patient Plan: 1. Your COVID test today was negative. As we discussed, this is a rapid test and is NOT as sensitive as the send out. Please attend the Respiratory clinic or drive through testing sites if you wish to have a more accurate test. 2. Follow up with your primary care provider as we discussed. 3. If your symptoms should develop, worsen, new symptoms develop or any of the signs and symptoms we discussed should arise please return to the emergency room or call 911 (if needed). Definitive disposition and diagnosis as appropriate pending reevaluation and review of above. - Related Data Allergies Allergy/AdvReac Type Severity Reaction Status Date / Time Sulfa (Sulfonamide Allergy Vomiting Verified 02/28/20 12:44 Antibiotics) Home Meds: Home Meds Aspirin [Cecilio Chewable Aspirin] 81 mg PO ASDIRECTED 11/02/14 [History] Furosemide [Lasix] 20 mg PO BID 11/02/14 [History] Latanoprost [Xalatan 0.005% Ophth Soln] 1 drop EYEBOTH BEDTIME 11/02/14 [History] Multivitamin [Multivitamins] 1 each PO DAILY 11/02/14 [History] Potassium Gluconate [Potassium] 595 mg PO DAILY 11/02/14 [History] Ubidecarenone [Coq-10] 100 mg PO DAILY 11/02/14 [History] atorvaSTATin [Lipitor] 20 mg PO ONETIME 11/02/14 [History] Acetaminophen [Tylenol Extra Strength] 500 mg PO Q4H PRN 09/04/16 [History] Diltiazem HCl [Diltiazem 24Hr ER] 120 mg PO DAILY 01/25/18 [History] Lansoprazole 30 mg PO DAILY 01/25/18 [History] Apixaban [Eliquis] 5 mg PO BID 90 Days #180 tablet 01/26/18 [Rx] Potassium Chloride [Klor-Con M20] 20 meq PO DAILY tab.er 01/26/18 [Rx] lisinopriL [Prinivil] 5 mg PO DAILY tablet 01/26/18 [Rx] Past Medical History HEENT History: Reports: Impaired Vision Cardiovascular History: Reports: Afib, High Cholesterol, Hypertension Respiratory History: Reports: None Gastrointestinal History: Reports: None Genitourinary History: Reports: None 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: Musculoskeletal History: Reports: Arthritis Neurological History: Reports: Other (See Below) Psychiatric History: Reports: None Endocrine/Metabolic History: Reports: Diabetes, Type II Hematologic History: Reports: None Immunologic History: Reports: None Oncologic (Cancer) History: Reports: None Dermatologic History: Reports: None - Infectious Disease History Infectious Disease History: Reports: Chicken Pox, Measles, Mumps - Past Surgical History Head Surgeries/Procedures: Reports: None GI Surgical History: Reports: Appendectomy, Other (See Below) Other GI Surgeries/Procedures: gall stones Musculoskeletal Surgical History: Reports: Shoulder Surgery Social & Family History - Family History Family Medical History: Noncontributory - Tobacco Use Smoking Status *Q: Former Smoker Used Tobacco, but Quit: Yes Month/Year Tobacco Last Used: 1967 - Caffeine Use Caffeine Use: Reports: None - Recreational Drug Use Recreational Drug Use: No - Living Situation & Occupation Living situation: Reports: with Spouse Occupation: Retired ED ROS GENERAL - Review of Systems Review Of Systems: Comprehensive ROS is negative, except as noted in HPI. ED EXAM, GENERAL - Physical Exam Exam: See Below (See dictation) Course - Vital Signs Last Recorded V/S: Last Vital Signs Temp 96.7 F L 02/28/20 12:47 Pulse 94 02/28/20 12:47 Resp 19 02/28/20 12:47 BP 144/59 H 02/28/20 12:47 Pulse Ox 96 02/28/20 12:47 - Orders/Labs/Meds Labs: Laboratory Tests 02/28/20 Range/Units 13:08 COVID-19 (SHAKEEL) NEGATIVE (NEGATIVE) Departure - Departure Time of Disposition: 14:02 Disposition: Home, Self-Care 01 Clinical Impression: Encounter for screening laboratory testing for COVID-19 virus in asymptomatic patient - Discharge Information Referrals: Rafael Barrientos MD [Primary Care Provider] - Forms: ED Department Discharge Additional Instructions: The following information is given to patients seen in the emergency department who are being discharged to home. This information is to outline your options for follow-up care. We provide all patients seen in our emergency department with a follow-up referral. The need for follow-up, as well as the timing and circumstances, are variable depending upon the specifics of your emergency department visit. If you don't have a primary care physician on staff, we will provide you with a referral. We always advise you to contact your personal physician following an emergency department visit to inform them of the circumstance of the visit and for follow-up with them and/or the need for any referrals to a consulting specialist. The emergency department will also refer you to a specialist when appropriate. This referral assures that you have the opportunity for follow-up care with a specialist. All of these measure are taken in an effort to provide you with optimal care, which includes your follow-up. Under all circumstances we always encourage you to contact your private physician who remains a resource for coordinating your care. When calling for follow-up care, please make the office aware that this follow-up is from your recent emergency room visit. If for any reason you are refused follow-up, please contact the [facility] Emergency Department at and asked to speak to the emergency department charge nurse. [facility] [address] [place] [id number] [address] Thank you for choosing the [facility] emergency department in [place] for your medical needs today. It was a pleasure caring for you. You were seen in the emergency department for COVID testing. 1. Your COVID test today was negative. As we discussed, this is a rapid test and is NOT as sensitive as the send out. Please attend the Respiratory clinic or drive through testing sites if you wish to have a more accurate test. 2. Follow up with your primary care provider as we discussed. 3. If your symptoms should develop, worsen, new symptoms develop or any of the signs and symptoms we discussed should arise please return to the emergency room or call 911 (if needed). Sepsis Event Note (ED) - Evaluation Sepsis Screening Result: No Definite Risk - Focused Exam Vital Signs: Vital Signs Temp Pulse Resp BP Pulse Ox 02/28/20 12:47 96.7 F L 94 19 144/59 H 96
[2020-02-28 14:06] VITALS: BP 143/62; PULSE 76
== END 2020-02-28 14:15 | disposition home or self-care (01) ==
LOC: EDBD → MW.ED 12:37
DX: Z20.828 Contact with and (suspected) exposure to other viral communicable diseases (principal); I48.91 Unspecified atrial fibrillation; I10 Essential (primary) hypertension; E11.9 Type 2 diabetes mellitus without complications; E78.5 Hyperlipidemia, unspecified; M19.90 Unspecified osteoarthritis, unspecified site; Z79.01 Long term (current) use of anticoagulants; Z79.82 Long term (current) use of aspirin; Z88.2 Allergy status to sulfonamides; Z87.891 Personal history of nicotine dependence; Z79.899 Other long term (current) drug therapy
CPT/HCPCS: 99283; U0002; 99282

== ENCOUNTER 2020-07-07 09:13 | Observation (INO) | payer MEDICARE, OTHER ==
--- NOTE | 2020-07-07 09:42 | EDM.PDOC ---
ED HPI GENERAL MEDICAL PROBLEM - General Chief Complaint: Genitourinary Problem Stated Complaint: INCONTINENCE Time Seen by Provider: 07/07/20 09:28 Source of Information: Reports: Patient History Limitations: Reports: No Limitations - History of Present Illness INITIAL COMMENTS - FREE TEXT/NARRATIVE: [ ] ROS: A 10-point review of systems, other than pertinent positives and negatives as stated per HPI, is otherwise negative Past medical history: No additional pertinent history Past Surgical history: No additional pertinent history Social history: No additional pertinent history Family history: No additional pertinent history PHYSICAL EXAM General: AOx4, GCS = 15, No distress HEENT: dry mucous membrane Neck: supple, no meningismus, no Kernig or Brudzinski Cardiac: S1S2 RRR Respiratory: CTAB, no crackles or rales, no wheezing Abdomen: Soft, nontender, no rebound or guarding, nondistended, no pulsatile mass. Back: nontender Musculoskeletal: NVI distally, no deformity Neuro: No focal deficits, CN 2 - 12 WNL. - Related Data Allergies Allergy/AdvReac Type Severity Reaction Status Date / Time Sulfa (Sulfonamide Allergy Vomiting Verified 02/28/20 12:44 Antibiotics) Home Meds: Home Meds Aspirin [Cecilio Chewable Aspirin] 81 mg PO ASDIRECTED 11/02/14 [History] Furosemide [Lasix] 20 mg PO BID 11/02/14 [History] Latanoprost [Xalatan 0.005% Ophth Soln] 1 drop EYEBOTH BEDTIME 11/02/14 [History] Multivitamin [Multivitamins] 1 each PO DAILY 11/02/14 [History] Potassium Gluconate [Potassium] 595 mg PO DAILY 11/02/14 [History] Ubidecarenone [Coq-10] 100 mg PO DAILY 11/02/14 [History] atorvaSTATin [Lipitor] 20 mg PO ONETIME 11/02/14 [History] Acetaminophen [Tylenol Extra Strength] 500 mg PO Q4H PRN 09/04/16 [History] Diltiazem HCl [Diltiazem 24Hr ER] 120 mg PO DAILY 01/25/18 [History] Lansoprazole 30 mg PO DAILY 01/25/18 [History] Apixaban [Eliquis] 5 mg PO BID 90 Days #180 tablet 01/26/18 [Rx] Potassium Chloride [Klor-Con M20] 20 meq PO DAILY tab.er 01/26/18 [Rx] lisinopriL [Prinivil] 5 mg PO DAILY tablet 01/26/18 [Rx] Past Medical History HEENT History: Reports: Impaired Vision Cardiovascular History: Reports: Afib, High Cholesterol, Hypertension Respiratory History: Reports: None Gastrointestinal History: Reports: None Genitourinary History: Reports: None 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: Musculoskeletal History: Reports: Arthritis Neurological History: Reports: Other (See Below) Psychiatric History: Reports: None Endocrine/Metabolic History: Reports: Diabetes, Type II Hematologic History: Reports: None Immunologic History: Reports: None Oncologic (Cancer) History: Reports: None Dermatologic History: Reports: None - Infectious Disease History Infectious Disease History: Reports: Chicken Pox, Measles, Mumps - Past Surgical History Head Surgeries/Procedures: Reports: None GI Surgical History: Reports: Appendectomy, Other (See Below) Other GI Surgeries/Procedures: gall stones Musculoskeletal Surgical History: Reports: Shoulder Surgery Social & Family History - Family History Family Medical History: No Pertinent Family History - Caffeine Use Caffeine Use: Reports: None - Living Situation & Occupation Living situation: Reports: with Spouse Occupation: Retired Course - Orders/Labs/Meds Orders: Active Orders 24 hr Category Date Time Status UA W/MICHAELA RFLX IF INDICATED [URIN] Stat Lab 07/07/20 09:31 Ordered Departure - Discharge Information Referrals: Rafael Barrientos MD [Primary Care Provider] - - My Orders Last 24 Hours: My Active Orders 07/07/20 09:31 UA W/MICHAELA RFLX IF INDICATED [URIN] Stat - Assessment/Plan Last 24 Hours: My Active Orders 07/07/20 09:31 UA W/MICHAELA RFLX IF INDICATED [URIN] Stat
[2020-07-07] MEDS ORDERED: Sodium Chloride 0.9% 1,000 ML IV ONE (10:25)
--- NOTE | 2020-07-07 10:33 | EDM.PDOC ---
ED HPI GENERAL MEDICAL PROBLEM - General Chief Complaint: Genitourinary Problem Stated Complaint: INCONTINENCE Time Seen by Provider: 07/07/20 09:28 Source of Information: Reports: Patient History Limitations: Reports: No Limitations - History of Present Illness INITIAL COMMENTS - FREE TEXT/NARRATIVE: HISTORY AND PHYSICAL: History of present illness: Patient is an 89-year-old female who presents to the ED today with concern of burning with urination, increased urinary frequency over the past 3 days. Patient states that she has been having issues with urinary tract infection over the past 6 weeks and has been seeing Dr. Rivers got to my clinic. Patient states that she has been on Macrobid initially for 5 days and then she began having urinary symptoms again so was placed on a 10-day course of Macrobid again. Patient states she is on day 9 out of 10 currently and is still having urinary discomfort. Patient states that she is having to use the restroom frequently wi th only a small amount coming out and is having burning when she goes to the bathroom. Denies any abdominal pain. Patient denies fever, chills, chest pain, shortness of breath, or cough. Denies headache, neck stiff ness, change in vision, syncope, or near syncope. Denies nausea, vomiting, abdominal pain, diarrhea, constipation. Has not noted any blood in urine or stool. Patient has been eating and drinking appropriately. Patient has a history of atrial fibrillation, hypertension, hyperlipidemia, frequent urinary tract infections, and type 2 diabetes. Review of systems: As per history of present illness and below otherwise all systems reviewed and negative. Past medical history: As per history of present illness and as reviewed below otherwise noncontributory. Surgical history: As per history of present illness and as reviewed below otherwise noncontributory. Social history: See social history for further information Family history: As per history of present illness and as reviewed below otherwise noncontributory. Physical exam: General: Patient is alert, oriented, and in no acute distress. Patient laying comfortably on exam table. Vital stable and reviewed by me HEENT: Atraumatic, normocephalic, pupils equal and reactive bilaterally, negative for conjunctival pallor or scleral icterus, mucous membranes moist, TMs normal bilaterally, throat clear, neck supple, nontender, trachea midline. No drooling or trismus noted. No meningeal signs. No hot potato voice noted. Lungs: Clear to auscultation, breath sounds equal bilaterally, chest nontender. Heart: S1S2, regular rate and rhythm without overt murmur Abdomen: Soft, nondistended, nontender. Negative for masses or hepatosplenomegaly. Negative for costovertebral tenderness. Pelvis: Stable nontender. Genitourinary: Deferred. Rectal: Deferred. Skin: Intact, warm, dry. No lesions or rashes noted. Extremities: Atraumatic, negative for cords or calf pain. Neurovascular unremarkable. Neuro: Awake, alert, oriented. Cranial nerves II through XII unremarkable. Cerebellum unremarkable. Motor and sensory unremarkable throughout. Exam nonfocal. Notes: While awaiting diagnostics to complete, patient expresses an episode of chest fullness/slight SOB. EKG performed. See Dr. Eason's dictation for EKG interpretation. CXR and troponin added to diagnostics. Admission for observation offered to patient and accepting of admission. COVID- 19 added on for admission purposes. Patient remains comfortable on exam and in no acute distress. Vitals remained stable. Patient is COVID-19 positive. Patient is requesting to leave ED and no longer wanting to be admitted to the ED due to known COVID-19 infection. All risks vs benefits discussed with patient and expresses understanding. Strict return precautions were thoroughly discussed with patient. Discussed importance for follow-up with a primary care provider following quarantine restrictions. Voices understanding and is agreeable to plan of care. Denies any further questions or concerns at this time. Diagnostics: CBC, CMP, UA w culture, lipase, Trop, eKG, CXR Therapeutics: NS Prescription: None Impression: COVID-19 infection Dysuria Plan: 1. Your COVID-19 screening is positive. That means you do have the coronavirus and are considered contagious. Your vital signs and oxygen saturation are well enough that you were able to monitor your symptoms at home. Continue to monitor for trouble breathing, new confusion or inability to arouse, bluish lips or face or any of the other symptoms we discussed -if this occurs please return to the emergency room.Continue to monitor your health at home for worsening symptoms so that you can be taken care of and treated quickly if needed. 2. Please self quarantine until 10 days have passed since your symptoms began AND you are fever free (<100.4 degrees fahrenheit) for 24 hours without the use of fever-reducing medications AND symptoms are improving. You should restrict activities outside of your home, except for getting medical care. Do not go to work, school, or public areas. Avoid using public transportation, ride-sharing, or taxis. Inform any persons that you have been in contact with since you started becoming symptomatic that you have tested positive; they should be made aware and take the appropriate steps as needed. 3. Take the medications as we prescribed as discussed. You can take NyQuil during the evening to help get a restful night sleep. 4. You may alternate Tylenol and ibuprofen as needed for pain and fever management. 5. The [facility] department will be calling you and following up with you. The [place] COVID 19 Hotline phone number , They are open Sunday - Sunday 7am - 7pm. Follow up with your primary care provider for re-evaluation and re-testing after quarantine and discuss when you should be seen. 6. For more specific guidelines regarding isolation/quarantine please visit this website. https://www.health.[place].gov/sites/www/files/documents/Files/MS S/coronavirus/Factsheet_for_People_With_COVID-19.pdf Definitive disposition and diagnosis as appropriate pending reevaluation and review of above. - Related Data Allergies Allergy/AdvReac Type Severity Reaction Status Date / Time Sulfa (Sulfonamide Allergy Vomiting Verified 07/07/20 09:33 Antibiotics) Home Meds: Home Meds Aspirin [Cecilio Chewable Aspirin] 81 mg PO ASDIRECTED 11/02/14 [History] Furosemide [Lasix] 20 mg PO BID 11/02/14 [History] Latanoprost [Xalatan 0.005% Ophth Soln] 1 drop EYEBOTH BEDTIME 11/02/14 [History] Multivitamin [Multivitamins] 1 each PO DAILY 11/02/14 [History] Potassium Gluconate [Potassium] 595 mg PO DAILY 11/02/14 [History] Ubidecarenone [Coq-10] 100 mg PO DAILY 11/02/14 [History] atorvaSTATin [Lipitor] 20 mg PO ONETIME 11/02/14 [History] Acetaminophen [Tylenol Extra Strength] 500 mg PO Q4H PRN 09/04/16 [History] Diltiazem HCl [Diltiazem 24Hr ER] 120 mg PO DAILY 01/25/18 [History] Lansoprazole 30 mg PO DAILY 01/25/18 [History] Apixaban [Eliquis] 5 mg PO BID 90 Days #180 tablet 01/26/18 [Rx] Potassium Chloride [Klor-Con M20] 20 meq PO DAILY tab.er 01/26/18 [Rx] lisinopriL [Prinivil] 5 mg PO DAILY tablet 01/26/18 [Rx] Past Medical History HEENT History: Reports: Impaired Vision Cardiovascular History: Reports: Afib, High Cholesterol, Hypertension Respiratory History: Reports: None Gastrointestinal History: Reports: None Genitourinary History: Reports: UTI, 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: Musculoskeletal History: Reports: Arthritis Neurological History: Reports: Other (See Below) Psychiatric History: Reports: None Endocrine/Metabolic History: Reports: Diabetes, Type II Hematologic History: Reports: None Immunologic History: Reports: None Oncologic (Cancer) History: Reports: None Dermatologic History: Reports: None - Infectious Disease History Infectious Disease History: Reports: Chicken Pox, Measles, Mumps - Past Surgical History Head Surgeries/Procedures: Reports: None GI Surgical History: Reports: Appendectomy, Other (See Below) Other GI Surgeries/Procedures: gall stones Musculoskeletal Surgical History: Reports: Shoulder Surgery Social & Family History - Family History Family Medical History: No Pertinent Family History - Tobacco Use Tobacco Use Status *Q: Never Tobacco User - Caffeine Use Caffeine Use: Reports: None - Recreational Drug Use Recreational Drug Use: No - Living Situation & Occupation Living situation: Reports: with Spouse Occupation: Retired ED ROS GENERAL - Review of Systems Review Of Systems: Comprehensive ROS is negative, except as noted in HPI. ED EXAM, RENAL/ - Physical Exam Exam: See Below (see dictation) Course - Vital Signs Last Recorded V/S: Last Vital Signs Temp 97 F 07/07/20 09:28 Pulse 70 07/07/20 13:04 Resp 16 07/07/20 13:04 BP 135/57 L 07/07/20 13:04 Pulse Ox 95 07/07/20 13:04 - Orders/Labs/Meds Orders: Active Orders 24 hr Category Date Time Status EKG Documentation Completion [RC] STAT Care 07/07/20 11:26 Active EKG Documentation Completion [RC] STAT Care 12/09/20 12:30 Active CULTURE URINE [RM] Stat Lab 07/07/20 11:22 Received Labs: Laboratory Tests 07/07/20 07/07/20 07/07/20 Range/Units 10:43 10:43 10:43 WBC 6.06 (4.0-11.0) K/uL RBC 4.05 L (4.30-5.90) M/uL Hgb 13.1 (12.0-16.0) g/dL Hct 39.8 (36.0-46.0) % MCV 98.3 H (80.0-98.0) fL MCH 32.3 H (27.0-32.0) pg MCHC 32.9 (31.0-37.0) g/dL RDW Std Deviation 49.2 (28.0-62.0) fl RDW Coeff of Emily 14 (11.0-15.0) % Plt Count 212 (150-400) K/uL MPV 10.20 (7.40-12.00) fL Neut % (Auto) 72.3 (48.0-80.0) % Lymph % (Auto) 17.0 (16.0-40.0) % [place] % (Auto) 10.2 (0.0-15.0) % Eos % (Auto) 0.3 (0.0-7.0) % Baso % (Auto) 0.2 (0.0-1.5) % Neut # (Auto) 4.4 (1.4-5.7) K/uL Lymph # (Auto) 1.0 (0.6-2.4) K/uL [place] # (Auto) 0.6 (0.0-0.8) K/uL Eos # (Auto) 0.0 (0.0-0.7) K/uL Baso # (Auto) 0.0 (0.0-0.1) K/uL Nucleated RBC % 0.0 /100WBC Nucleated RBCs # 0 K/uL Sodium 141 (136-145) mmol/L Potassium 3.2 L (3.5-5.1) mmol/L Chloride 102 (98-107) mmol/L Carbon Dioxide 26.9 (21.0-32.0) mmol/L BUN 22 H (7.0-18.0) mg/dL Creatinine 1.2 H (0.6-1.0) mg/dL Est Cr Clr Drug Dosing 26.12 mL/min Estimated GFR (MDRD) 42.5 ml/min Glucose 146 H (74-106) mg/dL Calcium 9.0 (8.5-10.1) mg/dL Total Bilirubin 0.6 (0.2-1.0) mg/dL AST 21 (15-37) IU/L ALT 15 (14-63) IU/L Alkaline Phosphatase 61 (46-116) U/L Troponin I < 0.050 (0.000-0.056) ng/mL Total Protein 6.4 (6.4-8.2) g/dL Albumin 3.1 L (3.4-5.0) g/dL Globulin 3.3 (2.6-4.0) g/dL Albumin/Globulin Ratio 0.9 (0.9-1.6) Lipase 277 (73-393) U/L Urine Color Urine Appearance Urine pH (5.0-8.0) Ur Specific [place] (1.001-1.035) Urine Protein (NEGATIVE) mg/dL Urine Glucose (UA) (NEGATIVE) mg/dL Urine Ketones (NEGATIVE) mg/dL Urine Occult Blood (NEGATIVE) Urine Nitrite (NEGATIVE) Urine Bilirubin (NEGATIVE) Urine Urobilinogen (<2.0) EU/dL Ur Leukocyte Esterase (NEGATIVE) U Hyaline Cast (Auto) (0-2/LPF) Urine RBC (0-2/HPF) Urine WBC (0-5/HPF) Ur Epithelial Cells (NONE-FEW) Urine Bacteria (NEGATIVE) Fine Granular Casts (NEGATIVE) SARS-CoV-2 RNA (SHAKEEL) (NEGATIVE) 07/07/20 07/07/20 Range/Units 11:22 12:42 WBC (4.0-11.0) K/uL RBC (4.30-5.90) M/uL Hgb (12.0-16.0) g/dL Hct (36.0-46.0) % MCV (80.0-98.0) fL MCH (27.0-32.0) pg MCHC (31.0-37.0) g/dL RDW Std Deviation (28.0-62.0) fl RDW Coeff of Emily (11.0-15.0) % Plt Count (150-400) K/uL MPV (7.40-12.00) fL Neut % (Auto) (48.0-80.0) % Lymph % (Auto) (16.0-40.0) % [place] % (Auto) (0.0-15.0) % Eos % (Auto) (0.0-7.0) % Baso % (Auto) (0.0-1.5) % Neut # (Auto) (1.4-5.7) K/uL Lymph # (Auto) (0.6-2.4) K/uL [place] # (Auto) (0.0-0.8) K/uL Eos # (Auto) (0.0-0.7) K/uL Baso # (Auto) (0.0-0.1) K/uL Nucleated RBC % /100WBC Nucleated RBCs # K/uL Sodium (136-145) mmol/L Potassium (3.5-5.1) mmol/L Chloride (98-107) mmol/L Carbon Dioxide (21.0-32.0) mmol/L BUN (7.0-18.0) mg/dL Creatinine (0.6-1.0) mg/dL Est Cr Clr Drug Dosing mL/min Estimated GFR (MDRD) ml/min Glucose (74-106) mg/dL Calcium (8.5-10.1) mg/dL Total Bilirubin (0.2-1.0) mg/dL AST (15-37) IU/L ALT (14-63) IU/L Alkaline Phosphatase (46-116) U/L Troponin I (0.000-0.056) ng/mL Total Protein (6.4-8.2) g/dL Albumin (3.4-5.0) g/dL Globulin (2.6-4.0) g/dL Albumin/Globulin Ratio (0.9-1.6) Lipase (73-393) U/L Urine Color YELLOW Urine Appearance CLEAR Urine pH 7.0 (5.0-8.0) Ur Specific [place] 1.015 (1.001-1.035) Urine Protein NEGATIVE (NEGATIVE) mg/dL Urine Glucose (UA) NEGATIVE (NEGATIVE) mg/dL Urine Ketones NEGATIVE (NEGATIVE) mg/dL Urine Occult Blood NEGATIVE (NEGATIVE) Urine Nitrite NEGATIVE (NEGATIVE) Urine Bilirubin NEGATIVE (NEGATIVE) Urine Urobilinogen 0.2 (<2.0) EU/dL Ur Leukocyte Esterase TRACE H (NEGATIVE) U Hyaline Cast (Auto) 0-1 (0-2/LPF) Urine RBC 0-2 (0-2/HPF) Urine WBC 0-3 (0-5/HPF) Ur Epithelial Cells FEW (NONE-FEW) Urine Bacteria FEW (NEGATIVE) Fine Granular Casts 0-2 (NEGATIVE) SARS-CoV-2 RNA (SHAKEEL) POSITIVE H (NEGATIVE) Meds: Medications Discontinued Medications Generic Name Dose Route Start Last Admin Trade Name Freq PRN Reason Stop Dose Admin Sodium Chloride 1,000 mls @ 999 mls/hr 07/07/20 10:25 07/07/20 10:43 Normal Saline IV 07/07/20 11:25 999 mls/hr BOLUS ONE Administration Departure - Departure Time of Disposition: 14:18 Disposition: Home, Self-Care 01 Clinical Impression: COVID-19 virus infection, Dysuria - Discharge Information Instructions: COVID-19 Frequently Asked Questions, Urinary Tract Infection, Adult, [id number], COVID-19: How to Protect Yourself and Others - [facility], Coronavirus Information 10/13/19, Prevent the Spread of COVID-19 if You Are Sick - [facility] Referrals: Rafael Barrientos MD [Primary Care Provider] - Forms: ED Department Discharge Additional Instructions: The following information is given to patients seen in the emergency department who are being discharged to home. This information is to outline your options for follow-up care. We provide all patients seen in our emergency department with a follow-up referral. The need for follow-up, as well as the timing and circumstances, are variable depending upon the specifics of your emergency department visit. If you don't have a primary care physician on staff, we will provide you with a referral. We always advise you to contact your personal physician following an emergency department visit to inform them of the circumstance of the visit and for follow-up with them and/or the need for any referrals to a consulting specialist. The emergency department will also refer you to a specialist when appropriate. This referral assures that you have the opportunity for follow-up care with a specialist. All of these measure are taken in an effort to provide you with optimal care, which includes your follow-up. Under all circumstances we always encourage you to contact your private physician who remains a resource for coordinating your care. When calling for follow-up care, please make the office aware that this follow-up is from your recent emergency room visit. If for any reason you are refused follow-up, please contact the [facility] at and asked to speak to the emergency department charge nurse. [facility] [address] [place] [id number] [facility] [address] [place] [id number] 1. Your COVID-19 screening is positive. That means you do have the coronavirus and are considered contagious. Your vital signs and oxygen saturation are well enough that you were able to monitor your symptoms at home. Continue to monitor for trouble breathing, new confusion or inability to arouse, bluish lips or face or any of the other symptoms we discussed -if this occurs please return to the emergency room.Continue to monitor your health at home for worsening symptoms so that you can be taken care of and treated quickly if needed. 2. Please self quarantine until 10 days have passed since your symptoms began AND you are fever free (<100.4 degrees fahrenheit) for 24 hours without the use of fever-reducing medications AND symptoms are improving. You should restrict activities outside of your home, except for getting medical care. Do not go to work, school, or public areas. Avoid using public transportation, ride-sharing, or taxis. Inform any persons that you have been in contact with since you s tarted becoming symptomatic that you have tested positive; they should be made aware and take the appropriate steps as needed. 3. Take the medications as we prescribed as discussed. You can take NyQuil during the evening to help get a restful night sleep. 4. You may alternate Tylenol and ibuprofen as needed for pain and fever management. 5. The [facility] department will be calling you and following up with you. The [place] COVID 19 Hotline phone number , They are open [place] - Sunday 7am - 7pm. Follow up with your primary care provider for re-evaluation and re-testing after quarantine and discuss when you should be seen. 6. For more specific guidelines regarding isolation/quarantine please visit this website. https://www.health.[place].gov/sites/www/files/documents/Files/ROCÍO/c oronavirus/Factsheet_for_People_With_COVID-19.pdf Sepsis Event Note (ED) - Evaluation Sepsis Screening Result: No Definite Risk - Focused Exam Vital Signs: Vital Signs Temp Pulse Resp BP Pulse Ox 07/07/20 13:04 70 16 135/57 L 95 07/07/20 12:33 70 16 146/59 H 94 L 07/07/20 12:03 70 16 136/58 L 95 07/07/20 11:33 77 16 170/62 H 96 07/07/20 10:45 72 16 154/72 H 93 L 07/07/20 09:28 97 F 88 16 143/68 H 96 - My Orders Last 24 Hours: My Active Orders 07/07/20 11:22 CULTURE URINE [RM] Stat 07/07/20 11:26 EKG Documentation Completion [RC] STAT 07/07/20 12:30 EKG Documentation Completion [RC] STAT - Assessment/Plan Last 24 Hours: My Active Orders 07/07/20 11:22 CULTURE URINE [RM] Stat 07/07/20 11:26 EKG Documentation Completion [RC] STAT 07/07/20 12:30 EKG Documentation Completion [RC] STAT
[2020-07-07 11:16] LABS: CARBON DIOXIDE,CO2 26.9 mmol/L (21.0-32.0); POTASSIUM,K 3.2 mmol/L (3.5-5.1)
--- NOTE | 2020-07-07 11:43 | PCM.SN.2 ---
- Free Text/Narrative Note: Heart rate = 68 bpm, Afib, normal QRS interval, no STEMI. EKG and rhythm strip interpreted by me at 1133
--- NOTE | 2020-07-07 13:05 | PCM.SN.2 ---
- Free Text/Narrative Note: Heart rate = 66 bpm, normal sinus rhythm, normal QRS interval, no STEMI. EKG and rhythm strip interpreted by me at 1258
--- NOTE | 2020-07-07 13:09 | CR ---
INDICATION: Pain and dyspnea COMPARISON: January 27, 2018 TECHNIQUE: PA and lateral views of the chest were acquired FINDINGS: TUBES AND LINES: None. HEART AND MEDIASTINUM: Enlarged heart in a globular configuration. This represents a change since the prior study. This suggests either multi chamber enlargement, pericardial effusion or both.. LUNGS AND PLEURAL SPACES: Vague airspace disease in the right midlung and right base and questionably retrocardiac.The pleural spaces are unremarkable. OSSEOUS STRUCTURES: Age-appropriate appearance. No acute focal finding. IMPRESSION: 1. Cardiac enlargement in a pattern suggesting pericardial effusion or multi chamber enlargement or both. This pattern of enlargement is new. 2. Vague airspace disease in the right midlung and right base and possibly at the left base as well Dictated by Jacob Mcmullen MD @ Jul 07 2020 1:05PM Signed by Dr. Jacob Mcmullen @ Jul 07 2020 1:08PM
--- NOTE | 2020-07-07 16:47 | PCM.HP.2 ---
<Matias Piedra - Last Filed: 07/07/20 18:30> H&P History of Present Illness - General Date of Service: 07/07/20 Admit Problem/Dx: Admission Diagnosis/Problem Admission Diagnosis/Problem Chest pain - History of Present Illness Initial Comments - Free Text/Narative: 89-year-old female admitted for ACS rule out. Patient initially initially presented to the ED with dysuria, increased urinary frequency for the past 3 days. Patient states a history of UTI infection for roughly 6 weeks, and has been seeing Dr. Rivers who prescribed her Macrobid 10-day course. Patient states she is on day 9 out of 10 of therapy but is still having urinary discomfort. Patient denies abdominal pain, suprapubic pain, flank pain, fever, chills, nausea, vomiting, diarrhea. Per ED documentation patient also had a bout of shortness of breath which was resolved on admission. Patient denies chest pain. Patient was diagnosed with Covid infection. Past medical history includes atrial fibrillation, hypertension, hyperlipidemia, history of urinary tract infection. Patient states that she currently does not have type 2 diabetes and was told by her primary care provider to discontinue diabetes medication. On admission troponin negative X1, Patient afebrile WBC 6, K+ 3.2, magnesium 1.6, UA positive for trace leukocyte Estrace. Chest x-ray impression, cardiac enlargement possible pericardial effusion or multichamber enlargement. Echocardiogram from 2019 summary, LVEF 55 to 60%, normal left ventricular systolic function, moderate tricuspid valve regurgitation, severe biatrial enlargement, atrial fibrillation/flutter. - Related Data Allergies/Adverse Reactions: Allergies Allergy/AdvReac Type Severity Reaction Status Date / Time Sulfa (Sulfonamide Allergy Vomiting Verified 07/07/20 09:33 Antibiotics) Home Medications: Home Meds Aspirin [Cecilio Chewable Aspirin] 81 mg PO ASDIRECTED 11/02/14 [History] Furosemide [Lasix] 20 mg PO BID 11/02/14 [History] Latanoprost [Xalatan 0.005% Ophth Soln] 1 drop EYEBOTH BEDTIME 11/02/14 [History] Multivitamin [Multivitamins] 1 each PO DAILY 11/02/14 [History] Potassium Gluconate [Potassium] 595 mg PO DAILY 11/02/14 [History] Ubidecarenone [Coq-10] 100 mg PO DAILY 11/02/14 [History] atorvaSTATin [Lipitor] 20 mg PO ONETIME 11/02/14 [History] Acetaminophen [Tylenol Extra Strength] 500 mg PO Q4H PRN 09/04/16 [History] Diltiazem HCl [Diltiazem 24Hr ER] 120 mg PO DAILY 01/25/18 [History] Lansoprazole 30 mg PO DAILY 01/25/18 [History] Apixaban [Eliquis] 5 mg PO BID 90 Days #180 tablet 01/26/18 [Rx] Potassium Chloride [Klor-Con M20] 20 meq PO DAILY tab.er 01/26/18 [Rx] lisinopriL [Prinivil] 5 mg PO DAILY tablet 01/26/18 [Rx] Past Medical History HEENT History: Reports: Impaired Vision Cardiovascular History: Reports: Afib, High Cholesterol, Hypertension Respiratory History: Reports: None Gastrointestinal History: Reports: None Genitourinary History: Reports: UTI, Recurrent 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: Musculoskeletal History: Reports: Arthritis Neurological History: Reports: Other (See Below) Psychiatric History: Reports: None Endocrine/Metabolic History: Reports: Diabetes, Type II Hematologic History: Reports: None Immunologic History: Reports: None Oncologic (Cancer) History: Reports: None Dermatologic History: Reports: None - Infectious Disease History Infectious Disease History: Reports: Chicken Pox, Measles, Mumps - Past Surgical History Head Surgeries/Procedures: Reports: None GI Surgical History: Reports: Appendectomy, Other (See Below) Other GI Surgeries/Procedures: gall stones Musculoskeletal Surgical History: Reports: Shoulder Surgery Social & Family History - Family History Family Medical History: No Pertinent Family History - Tobacco Use Tobacco Use Status *Q: Never Tobacco User - Caffeine Use Caffeine Use: Reports: None - Recreational Drug Use Recreational Drug Use: No - Living Situation & Occupation Living situation: Reports: with Spouse Occupation: Retired H&P Review of Systems - Review of Systems: Review Of Systems: See Below General: Denies: Fever, Chills Pulmonary: Denies: Shortness of Breath, Wheezing Cardiovascular: Denies: Chest Pain, Dyspnea on Exertion Gastrointestinal: Denies: Abdominal Pain, Decreased Appetite, Nausea, Vomiting Genitourinary: Reports: Dysuria, Frequency Psychiatric: Denies: Confusion, Depression Neurological: Denies: Confusion, Dizziness, Headache Exam - Exam Exam: See Below - Vital Signs Vital Signs: Last Vital Signs Temp 97 F 07/07/20 09:28 Pulse 76 07/07/20 14:30 Resp 16 07/07/20 14:30 BP 165/83 H 07/07/20 14:30 Pulse Ox 97 07/07/20 14:30 Weight: 68.492 kg - Exam General: Alert, Oriented Lungs: Clear to Auscultation, Normal Respiratory Effort Cardiovascular: Regular Rate, Irregular Rhythm GI/Abdominal Exam: Normal Bowel Sounds, Soft, Non-Tender Extremities: No Pedal Edema Neuro Extensive - Mental Status: Alert, Oriented x3 - Patient Data Lab Results Last 24 hrs: Laboratory Results - last 24 hr 07/07/20 07/07/20 07/07/20 Range/Units 10:43 10:43 10:43 WBC 6.06 (4.0-11.0) K/uL RBC 4.05 L (4.30-5.90) M/uL Hgb 13.1 (12.0-16.0) g/dL Hct 39.8 (36.0-46.0) % MCV 98.3 H (80.0-98.0) fL MCH 32.3 H (27.0-32.0) pg MCHC 32.9 (31.0-37.0) g/dL RDW Std Deviation 49.2 (28.0-62.0) fl RDW Coeff of Emily 14 (11.0-15.0) % Plt Count 212 (150-400) K/uL MPV 10.20 (7.40-12.00) fL Neut % (Auto) 72.3 (48.0-80.0) % Lymph % (Auto) 17.0 (16.0-40.0) % Day % (Auto) 10.2 (0.0-15.0) % Eos % (Auto) 0.3 (0.0-7.0) % Baso % (Auto) 0.2 (0.0-1.5) % Neut # (Auto) 4.4 (1.4-5.7) K/uL Lymph # (Auto) 1.0 (0.6-2.4) K/uL Day # (Auto) 0.6 (0.0-0.8) K/uL Eos # (Auto) 0.0 (0.0-0.7) K/uL Baso # (Auto) 0.0 (0.0-0.1) K/uL Nucleated RBC % 0.0 /100WBC Nucleated RBCs # 0 K/uL Sodium 141 (136-145) mmol/L Potassium 3.2 L (3.5-5.1) mmol/L Chloride 102 (98-107) mmol/L Carbon Dioxide 26.9 (21.0-32.0) mmol/L BUN 22 H (7.0-18.0) mg/dL Creatinine 1.2 H (0.6-1.0) mg/dL Est Cr Clr Drug Dosing 26.12 mL/min Estimated GFR (MDRD) 42.5 ml/min Glucose 146 H (74-106) mg/dL Calcium 9.0 (8.5-10.1) mg/dL Total Bilirubin 0.6 (0.2-1.0) mg/dL AST 21 (15-37) IU/L ALT 15 (14-63) IU/L Alkaline Phosphatase 61 (46-116) U/L Troponin I < 0.050 (0.000-0.056) ng/mL Total Protein 6.4 (6.4-8.2) g/dL Albumin 3.1 L (3.4-5.0) g/dL Globulin 3.3 (2.6-4.0) g/dL Albumin/Globulin Ratio 0.9 (0.9-1.6) Lipase 277 (73-393) U/L Urine Color Urine Appearance Urine pH (5.0-8.0) Ur Specific [place] (1.001-1.035) Urine Protein (NEGATIVE) mg/dL Urine Glucose (UA) (NEGATIVE) mg/dL Urine Ketones (NEGATIVE) mg/dL Urine Occult Blood (NEGATIVE) Urine Nitrite (NEGATIVE) Urine Bilirubin (NEGATIVE) Urine Urobilinogen (<2.0) EU/dL Ur Leukocyte Esterase (NEGATIVE) U Hyaline Cast (Auto) (0-2/LPF) Urine RBC (0-2/HPF) Urine WBC (0-5/HPF) Ur Epithelial Cells (NONE-FEW) Urine Bacteria (NEGATIVE) Fine Granular Casts (NEGATIVE) SARS-CoV-2 RNA (SHAKEEL) (NEGATIVE) 07/07/20 07/07/20 Range/Units 11:22 12:42 WBC (4.0-11.0) K/uL RBC (4.30-5.90) M/uL Hgb (12.0-16.0) g/dL Hct (36.0-46.0) % MCV (80.0-98.0) fL MCH (27.0-32.0) pg MCHC (31.0-37.0) g/dL RDW Std Deviation (28.0-62.0) fl RDW Coeff of Emily (11.0-15.0) % Plt Count (150-400) K/uL MPV (7.40-12.00) fL Neut % (Auto) (48.0-80.0) % Lymph % (Auto) (16.0-40.0) % Day % (Auto) (0.0-15.0) % Eos % (Auto) (0.0-7.0) % Baso % (Auto) (0.0-1.5) % Neut # (Auto) (1.4-5.7) K/uL Lymph # (Auto) (0.6-2.4) K/uL Day # (Auto) (0.0-0.8) K/uL Eos # (Auto) (0.0-0.7) K/uL Baso # (Auto) (0.0-0.1) K/uL Nucleated RBC % /100WBC Nucleated RBCs # K/uL Sodium (136-145) mmol/L Potassium (3.5-5.1) mmol/L Chloride (98-107) mmol/L Carbon Dioxide (21.0-32.0) mmol/L BUN (7.0-18.0) mg/dL Creatinine (0.6-1.0) mg/dL Est Cr Clr Drug Dosing mL/min Estimated GFR (MDRD) ml/min Glucose (74-106) mg/dL Calcium (8.5-10.1) mg/dL Total Bilirubin (0.2-1.0) mg/dL AST (15-37) IU/L ALT (14-63) IU/L Alkaline Phosphatase (46-116) U/L Troponin I (0.000-0.056) ng/mL Total Protein (6.4-8.2) g/dL Albumin (3.4-5.0) g/dL Globulin (2.6-4.0) g/dL Albumin/Globulin Ratio (0.9-1.6) Lipase (73-393) U/L Urine Color YELLOW Urine Appearance CLEAR Urine pH 7.0 (5.0-8.0) Ur Specific [place] 1.015 (1.001-1.035) Urine Protein NEGATIVE (NEGATIVE) mg/dL Urine Glucose (UA) NEGATIVE (NEGATIVE) mg/dL Urine Ketones NEGATIVE (NEGATIVE) mg/dL Urine Occult Blood NEGATIVE (NEGATIVE) Urine Nitrite NEGATIVE (NEGATIVE) Urine Bilirubin NEGATIVE (NEGATIVE) Urine Urobilinogen 0.2 (<2.0) EU/dL Ur Leukocyte Esterase TRACE H (NEGATIVE) U Hyaline Cast (Auto) 0-1 (0-2/LPF) Urine RBC 0-2 (0-2/HPF) Urine WBC 0-3 (0-5/HPF) Ur Epithelial Cells FEW (NONE-FEW) Urine Bacteria FEW (NEGATIVE) Fine Granular Casts 0-2 (NEGATIVE) SARS-CoV-2 RNA (SHAKEEL) POSITIVE H (NEGATIVE) Result Diagrams: 07/07/20 10:43 07/07/20 10:43 Sepsis Event Note - Evaluation Sepsis Screening Result: No Definite Risk - Focused Exam Vital Signs: Vital Signs Temp Pulse Resp BP Pulse Ox 07/07/20 14:30 76 16 165/83 H 97 07/07/20 13:04 70 16 135/57 L 95 07/07/20 12:33 70 16 146/59 H 94 L 07/07/20 12:03 70 16 136/58 L 95 07/07/20 11:33 77 16 170/62 H 96 07/07/20 10:45 72 16 154/72 H 93 L 07/07/20 09:28 97 F 88 16 143/68 H 96 - Problem List (1) COVID-19 virus infection SNOMED Code(s): 757153668 ICD Code: U07.1 - COVID-19 Status: Acute Current Visit: Yes (2) Dysuria SNOMED Code(s): 99770677 ICD Code: R30.0 - DYSURIA Status: Acute Current Visit: Yes (3) Arthritis SNOMED Code(s): 6686298 ICD Code: M19.90 - UNSPECIFIED OSTEOARTHRITIS, UNSPECIFIED SITE Status: Acute Current Visit: Yes (4) Atrial fibrillation by electrocardiogram SNOMED Code(s): 377488400 ICD Code: I48.91 - UNSPECIFIED ATRIAL FIBRILLATION Status: Acute Current Visit: No (5) Chest pain, rule out acute myocardial infarction SNOMED Code(s): 30705887 ICD Code: R07.9 - CHEST PAIN, UNSPECIFIED Status: Acute Current Visit: No (6) Afib SNOMED Code(s): 90350041 ICD Code: I48.91 - UNSPECIFIED ATRIAL FIBRILLATION Status: Chronic Current Visit: Yes Qualifiers: Atrial fibrillation type: paroxysmal Qualified Code(s): I48.0 - Paroxysmal atrial fibrillation (7) HLD (hyperlipidemia) SNOMED Code(s): 44918521 ICD Code: E78.5 - HYPERLIPIDEMIA, UNSPECIFIED Status: Chronic Current Visit: Yes (8) HTN (hypertension) SNOMED Code(s): 88868660 ICD Code: I10 - ESSENTIAL (PRIMARY) HYPERTENSION Status: Chronic Current Visit: Yes Qualifiers: Hypertension type: essential hypertension Qualified Code(s): I10 - Essential (primary) hypertension Problem List Initiated/Reviewed/Updated: Yes Orders Last 24hrs: Active Orders 24 hr Category Date Time Status Admission Status [Patient Status] [ADT] Stat ADT 07/07/20 16:02 Active EKG Documentation Completion [RC] STAT Care 07/07/20 11:26 Active EKG Documentation Completion [RC] STAT Care 07/07/20 12:30 Active CULTURE URINE [RM] Stat Lab 07/07/20 11:22 Received Assessment/Plan Comment:: ACS rule out Echo, Trend troponin x3, heart healthy diet, Telemetry, Eliquis 5 mg BID, aspirin 81 daily, diltiazem 120 mg daily, lisinopril 5 mg daily, K+ abov e 4, Mg above 2, Heart healthy diet. COVIDpatient's oxygen saturation is 97% on room air at time of admission. At this time patient does not require remdesivir, dexamethasone. Will change treatment for Covid as needed. <Halina Narayanan - Last Filed: 07/07/20 20:48> H&P History of Present Illness - General Admit Problem/Dx: Admission Diagnosis/Problem Admission Diagnosis/Problem Chest pain Exam - Vital Signs Vital Signs: Last Vital Signs Temp 36.1 C 07/07/20 09:28 Pulse 69 07/07/20 16:00 Resp 16 07/07/20 16:00 BP 119/99 H 07/07/20 16:00 Pulse Ox 99 07/07/20 16:00 - Patient Data Lab Results Last 24 hrs: Laboratory Results - last 24 hr 07/07/20 07/07/20 07/07/20 Range/Units 10:43 10:43 10:43 WBC 6.06 (4.0-11.0) K/uL RBC 4.05 L (4.30-5.90) M/uL Hgb 13.1 (12.0-16.0) g/dL Hct 39.8 (36.0-46.0) % MCV 98.3 H (80.0-98.0) fL MCH 32.3 H (27.0-32.0) pg MCHC 32.9 (31.0-37.0) g/dL RDW Std Deviation 49.2 (28.0-62.0) fl RDW Coeff of Emily 14 (11.0-15.0) % Plt Count 212 (150-400) K/uL MPV 10.20 (7.40-12.00) fL Neut % (Auto) 72.3 (48.0-80.0) % Lymph % (Auto) 17.0 (16.0-40.0) % Day % (Auto) 10.2 (0.0-15.0) % Eos % (Auto) 0.3 (0.0-7.0) % Baso % (Auto) 0.2 (0.0-1.5) % Neut # (Auto) 4.4 (1.4-5.7) K/uL Lymph # (Auto) 1.0 (0.6-2.4) K/uL Day # (Auto) 0.6 (0.0-0.8) K/uL Eos # (Auto) 0.0 (0.0-0.7) K/uL Baso # (Auto) 0.0 (0.0-0.1) K/uL Nucleated RBC % 0.0 /100WBC Nucleated RBCs # 0 K/uL Sodium 141 (136-145) mmol/L Potassium 3.2 L (3.5-5.1) mmol/L Chloride 102 (98-107) mmol/L Carbon Dioxide 26.9 (21.0-32.0) mmol/L BUN 22 H (7.0-18.0) mg/dL Creatinine 1.2 H (0.6-1.0) mg/dL Est Cr Clr Drug Dosing 26.12 mL/min Estimated GFR (MDRD) 42.5 ml/min Glucose 146 H (74-106) mg/dL Calcium 9.0 (8.5-10.1) mg/dL Phosphorus (2.6-4.7) mg/dL Magnesium (1.8-2.4) mg/dL Total Bilirubin 0.6 (0.2-1.0) mg/dL AST 21 (15-37) IU/L ALT 15 (14-63) IU/L Alkaline Phosphatase 61 (46-116) U/L Troponin I < 0.050 (0.000-0.056) ng/mL Total Protein 6.4 (6.4-8.2) g/dL Albumin 3.1 L (3.4-5.0) g/dL Globulin 3.3 (2.6-4.0) g/dL Albumin/Globulin Ratio 0.9 (0.9-1.6) Lipase 277 (73-393) U/L Urine Color Urine Appearance Urine pH (5.0-8.0) Ur Specific [place] (1.001-1.035) Urine Protein (NEGATIVE) mg/dL Urine Glucose (UA) (NEGATIVE) mg/dL Urine Ketones (NEGATIVE) mg/dL Urine Occult Blood (NEGATIVE) Urine Nitrite (NEGATIVE) Urine Bilirubin (NEGATIVE) Urine Urobilinogen (<2.0) EU/dL Ur Leukocyte Esterase (NEGATIVE) U Hyaline Cast (Auto) (0-2/LPF) Urine RBC (0-2/HPF) Urine WBC (0-5/HPF) Ur Epithelial Cells (NONE-FEW) Urine Bacteria (NEGATIVE) Fine Granular Casts (NEGATIVE) SARS-CoV-2 RNA (SHAKEEL) (NEGATIVE) 07/07/20 07/07/20 07/07/20 Range/Units 10:46 11:22 12:42 WBC (4.0-11.0) K/uL RBC (4.30-5.90) M/uL Hgb (12.0-16.0) g/dL Hct (36.0-46.0) % MCV (80.0-98.0) fL MCH (27.0-32.0) pg MCHC (31.0-37.0) g/dL RDW Std Deviation (28.0-62.0) fl RDW Coeff of Emily (11.0-15.0) % Plt Count (150-400) K/uL MPV (7.40-12.00) fL Neut % (Auto) (48.0-80.0) % Lymph % (Auto) (16.0-40.0) % Day % (Auto) (0.0-15.0) % Eos % (Auto) (0.0-7.0) % Baso % (Auto) (0.0-1.5) % Neut # (Auto) (1.4-5.7) K/uL Lymph # (Auto) (0.6-2.4) K/uL Day # (Auto) (0.0-0.8) K/uL Eos # (Auto) (0.0-0.7) K/uL Baso # (Auto) (0.0-0.1) K/uL Nucleated RBC % /100WBC Nucleated RBCs # K/uL Sodium (136-145) mmol/L Potassium (3.5-5.1) mmol/L Chloride (98-107) mmol/L Carbon Dioxide (21.0-32.0) mmol/L BUN (7.0-18.0) mg/dL Creatinine (0.6-1.0) mg/dL Est Cr Clr Drug Dosing mL/min Estimated GFR (MDRD) ml/min Glucose (74-106) mg/dL Calcium (8.5-10.1) mg/dL Phosphorus 2.8 (2.6-4.7) mg/dL Magnesium 1.6 L (1.8-2.4) mg/dL Total Bilirubin (0.2-1.0) mg/dL AST (15-37) IU/L ALT (14-63) IU/L Alkaline Phosphatase (46-116) U/L Troponin I (0.000-0.056) ng/mL Total Protein (6.4-8.2) g/dL Albumin (3.4-5.0) g/dL Globulin (2.6-4.0) g/dL Albumin/Globulin Ratio (0.9-1.6) Lipase (73-393) U/L Urine Color YELLOW Urine Appearance CLEAR Urine pH 7.0 (5.0-8.0) Ur Specific [place] 1.015 (1.001-1.035) Urine Protein NEGATIVE (NEGATIVE) mg/dL Urine Glucose (UA) NEGATIVE (NEGATIVE) mg/dL Urine Ketones NEGATIVE (NEGATIVE) mg/dL Urine Occult Blood NEGATIVE (NEGATIVE) Urine Nitrite NEGATIVE (NEGATIVE) Urine Bilirubin NEGATIVE (NEGATIVE) Urine Urobilinogen 0.2 (<2.0) EU/dL Ur Leukocyte Esterase TRACE H (NEGATIVE) U Hyaline Cast (Auto) 0-1 (0-2/LPF) Urine RBC 0-2 (0-2/HPF) Urine WBC 0-3 (0-5/HPF) Ur Epithelial Cells FEW (NONE-FEW) Urine Bacteria FEW (NEGATIVE) Fine Granular Casts 0-2 (NEGATIVE) SARS-CoV-2 RNA (SHAKEEL) POSITIVE H (NEGATIVE) 07/07/20 Range/Units 19:32 WBC (4.0-11.0) K/uL RBC (4.30-5.90) M/uL Hgb (12.0-16.0) g/dL Hct (36.0-46.0) % MCV (80.0-98.0) fL MCH (27.0-32.0) pg MCHC (31.0-37.0) g/dL RDW Std Deviation (28.0-62.0) fl RDW Coeff of Emily (11.0-15.0) % Plt Count (150-400) K/uL MPV (7.40-12.00) fL Neut % (Auto) (48.0-80.0) % Lymph % (Auto) (16.0-40.0) % Day % (Auto) (0.0-15.0) % Eos % (Auto) (0.0-7.0) % Baso % (Auto) (0.0-1.5) % Neut # (Auto) (1.4-5.7) K/uL Lymph # (Auto) (0.6-2.4) K/uL Day # (Auto) (0.0-0.8) K/uL Eos # (Auto) (0.0-0.7) K/uL Baso # (Auto) (0.0-0.1) K/uL Nucleated RBC % /100WBC Nucleated RBCs # K/uL Sodium (136-145) mmol/L Potassium (3.5-5.1) mmol/L Chloride (98-107) mmol/L Carbon Dioxide (21.0-32.0) mmol/L BUN (7.0-18.0) mg/dL Creatinine (0.6-1.0) mg/dL Est Cr Clr Drug Dosing mL/min Estimated GFR (MDRD) ml/min Glucose (74-106) mg/dL Calcium (8.5-10.1) mg/dL Phosphorus (2.6-4.7) mg/dL Magnesium (1.8-2.4) mg/dL Total Bilirubin (0.2-1.0) mg/dL AST (15-37) IU/L ALT (14-63) IU/L Alkaline Phosphatase (46-116) U/L Troponin I < 0.050 (0.000-0.056) ng/mL Total Protein (6.4-8.2) g/dL Albumin (3.4-5.0) g/dL Globulin (2.6-4.0) g/dL Albumin/Globulin Ratio (0.9-1.6) Lipase (73-393) U/L Urine Color Urine Appearance Urine pH (5.0-8.0) Ur Specific [place] (1.001-1.035) Urine Protein (NEGATIVE) mg/dL Urine Glucose (UA) (NEGATIVE) mg/dL Urine Ketones (NEGATIVE) mg/dL Urine Occult Blood (NEGATIVE) Urine Nitrite (NEGATIVE) Urine Bilirubin (NEGATIVE) Urine Urobilinogen (<2.0) EU/dL Ur Leukocyte Esterase (NEGATIVE) U Hyaline Cast (Auto) (0-2/LPF) Urine RBC (0-2/HPF) Urine WBC (0-5/HPF) Ur Epithelial Cells (NONE-FEW) Urine Bacteria (NEGATIVE) Fine Granular Casts (NEGATIVE) SARS-CoV-2 RNA (SHAKEEL) (NEGATIVE) Result Diagrams: 07/07/20 10:43 07/07/20 10:43 Sepsis Event Note - Focused Exam Vital Signs: Vital Signs Temp Pulse Resp BP Pulse Ox 07/07/20 16:00 69 16 119/99 H 99 12/09/20 14:30 76 16 165/83 H 97 07/07/20 13:04 70 16 135/57 L 95 07/07/20 12:33 70 16 146/59 H 94 L 07/07/20 12:03 70 16 136/58 L 95 07/07/20 11:33 77 16 170/62 H 96 07/07/20 10:45 72 16 154/72 H 93 L 07/07/20 09:28 36.1 C 88 16 143/68 H 96 Orders Last 24hrs: Active Orders 24 hr Category Date Time Status Admission Status [Patient Status] [ADT] Stat ADT 07/07/20 16:02 Active Antiembolic Devices [RC] PER UNIT ROUTINE Care 07/07/20 17:10 Active EKG Documentation Completion [RC] STAT Care 07/07/20 11:26 Active EKG Documentation Completion [RC] STAT Care 07/07/20 12:30 Active Oxygen Therapy [RC] PRN Care 07/07/20 17:10 Active Telemetry Monitoring [Cardiac Monitoring] [RC] . Care 07/07/20 17:08 Active DIRECTED VTE/DVT Education [RC] PER UNIT ROUTINE Care 07/07/20 17:10 Active Vital Signs [RC] Q4H Care 07/07/20 17:10 Active Heart Healthy Diet [DIET] Diet 07/08/20 Breakfast Active Echo 2D wo Cont [US] Routine Exams 07/07/20 17:11 Ordered BMP [BASIC METABOLIC PANEL,BMP] [CHEM] AM Lab 07/08/20 05:11 Ordered CBC WITH AUTO DIFF [HEME] AM Lab 07/08/20 05:11 Ordered CULTURE URINE [RM] Stat Lab 07/07/20 11:22 Received MAGNESIUM [CHEM] AM Lab 07/08/20 05:11 Ordered PHOSPHORUS [CHEM] AM Lab 07/08/20 05:11 Ordered TROPONIN I [CHEM] Q3H Lab 07/07/20 20:52 Ordered TROPONIN I [CHEM] Q3H Lab 07/07/20 23:52 Ordered Acetaminophen [TylenoL] Med 07/07/20 17:10 Active 650 mg PO Q4H PRN Apixaban [Eliquis] Med 07/07/20 21:00 Pending 5 mg PO BID Aspirin Med 07/07/20 17:15 Ordered 81 mg PO ASDIRECTED Diltiazem [Cardizem CD] Med 07/08/20 09:00 Ordered 120 mg PO DAILY Latanoprost [Xalatan 0.005% Ophth Soln] Med 07/07/20 21:00 Ordered DOSE ml EYEBOTH BEDTIME Meropenem [Merrem] 1 gm Med 07/07/20 21:00 Active Sodium Chloride 0.9% [Normal Saline] 100 ml IV Q8H Oxybutynin Med 07/07/20 20:30 Ordered 2.5 mg PO DAILY Ubidecarenone Med 07/08/20 09:00 Ordered 100 mg PO DAILY lisinopriL [Prinivil] Med 07/08/20 09:00 Ordered 5 mg PO DAILY Sequential Compression Device [OM.PC] Per Unit Routine Oth 07/07/20 17:10 Ordered Code Status [Resuscitation Status] Routine Resus Stat 07/07/20 19:09 Ordered Medication Orders Acetaminophen (Tylenol) 650 mg PO Q4H PRN PRN Reason: Pain (Mild 1-3)/fever Apixaban (Eliquis) 5 mg PO BID LIZZ Aspirin (Aspirin) 81 mg PO ASDIRECTED LIZZ Diltiazem HCl (Cardizem Cd) 120 mg PO DAILY LIZZ Meropenem 1 gm/ Sodium (Chloride) 100 mls @ 200 mls/hr IV Q8H LIZZ Latanoprost (Xalatan 0.005% Ophth Soln) ml EYEBOTH BEDTIME LIZZ Lisinopril (Prinivil) 5 mg PO DAILY LIZZ Non-Formulary Medication (Ubidecarenone) 100 mg PO DAILY LIZZ Oxybutynin Chloride (Oxybutynin) 2.5 mg PO DAILY LIZZ Assessment/Plan Comment:: I performed a history and physical exam of the patient and discussed management with resident. I have reviewed the residents note and agree with documented findings and plan unless otherwise specified in my note. start antibiotics for UTI, f/u on culture results Oxybutynin for possible over active bladder
[2020-07-07] MEDS ORDERED: Potassium Chloride 20 MEQ Tab.ER PO ONE (17:08)
[2020-07-07] MEDS ORDERED: Acetaminophen 325 MG Tab PO PRN (17:10)
[2020-07-07] MEDS ORDERED: Magnesium Oxide 400 MG Tab PO ONE (17:55)
[2020-07-07] MEDS ORDERED: cefTRIAXone 1 GM in Premix Bag 1 BAG IV SCH (20:30)
[2020-07-07] MEDS ORDERED: Meropenem 1 GM in Sodium Chloride 0.9% 100 ML IV SCH (21:00)
[2020-07-07] MEDS ORDERED: Latanoprost 0.005% Ophth Soln 2.5 ML Bottle EYEBOTH SCH (21:00)
[2020-07-07] MEDS ORDERED: Meropenem Premix 1 GM in Premix Bag 1 BAG IV SCH (21:30)
[2020-07-07] MEDS: Oxybutynin 5 MG Tab PO SCH (21:52)
[2020-07-07] MEDS: Apixaban 5 MG Tab PO SCH (21:52)
[2020-07-08] MEDS ORDERED: Meropenem Premix 1 GM in Premix Bag 1 BAG IV SCH ×2 (01:00→09:00)
[2020-07-08 06:38] LABS: CARBON DIOXIDE,CO2 28.4 mmol/L (21.0-32.0); POTASSIUM,K 3.9 mmol/L (3.5-5.1)
[2020-07-08] MEDS ORDERED: Magnesium Oxide 400 MG Tab PO ONE (07:38)
[2020-07-08] MEDS ORDERED: Potassium Chloride 20 MEQ Tab.ER PO ONE (07:47)
[2020-07-08] MEDS ORDERED: Diltiazem 120 MG Cap.CD PO SCH (09:00)
[2020-07-08] MEDS ORDERED: Aspirin 81 MG Tab.Chew PO SCH (09:00)
[2020-07-08] MEDS ORDERED: UBIDECARENONE 100 MG PO SCH (09:00)
[2020-07-08] MEDS ORDERED: Lisinopril 5 MG Tab PO SCH (09:00)
[2020-07-08] MEDS: Apixaban 5 MG Tab PO SCH (09:22)
[2020-07-08] MEDS: Oxybutynin 5 MG Tab PO SCH (09:22)
[2020-07-08 12:20] VITALS: BP 141/59; PULSE 65
--- NOTE | 2020-07-08 17:27 | PCM.DCSUM1 ---
Discharge Summary - Hospital Course Free Text/Narrative:: 89-year-old female admitted for ACS rule out. Patient initially initially presented to the ED with dysuria, increased urinary frequency for the past 3 days. Patient states a history of UTI infection for roughly 6 weeks, and has been seeing Dr. Rivers who prescribed her Macrobid 10-day course. Patient states she is on day 9 out of 10 of therapy but is still having urinary discomfort. Patient denies abdominal pain, suprapubic pain, flank pain, fever, chills, nausea, vomiting, diarrhea. Per ED documentation patient also had a bout of shortness of breath which was resolved on admission. Patient denies chest pain. Patient was diagnosed with Covid infection. Past medical history includes atrial fibrillation, hypertension, hyperlipidemia, history of urinary tract infection. Patient states that she currently does not have type 2 diabetes and was told by her primary care provider to discontinue diabetes medication. On admission troponin negative X 3, Patient afebrile WBC 6, K+ 3.2, magnesium 1.6, UA positive for trace leukocyte Estrace. Chest x-ray impression, cardiac enlargement possible pericardial effusion or multichamber enlargement. Echocardiogram from 2019 summary, LVEF 55 to 60%, normal left ventricular systolic function, moderate tricuspid valve regurgitation, severe biatrial enlargement, atrial fibrillation/flutter. ACS rule out, patient received Echo prior to discharge, watched overnight on telemetry, resumed home medications of Eliquis, aspirin, diltiazem, lisinopril, repleted potassium and magnesium. Patient did not require remdesivir, dexamethasone, C. Plasma during admission as her oxygen saturation was 97% on room air. Bacteruria was treated with Meropenem. - Discharge Data Discharge Date: 07/08/20 Discharge Disposition: Home, Self-Care 01 Condition: Stable - Referral to Home Health Primary Care Physician: Rafael Barrientos MD - Discharge Diagnosis/Problem(s) (1) COVID-19 virus infection SNOMED Code(s): 950222946 ICD Code: U07.1 - COVID-19 Status: Acute (2) Dysuria SNOMED Code(s): 89266350 ICD Code: R30.0 - DYSURIA Status: Acute (3) Arthritis SNOMED Code(s): 7388751 ICD Code: M19.90 - UNSPECIFIED OSTEOARTHRITIS, UNSPECIFIED SITE Status: Acute (4) Atrial fibrillation by electrocardiogram SNOMED Code(s): 123217679 ICD Code: I48.91 - UNSPECIFIED ATRIAL FIBRILLATION Status: Acute (5) Chest pain, rule out acute myocardial infarction SNOMED Code(s): 57332943 ICD Code: R07.9 - CHEST PAIN, UNSPECIFIED Status: Acute (6) Afib SNOMED Code(s): 47012275 ICD Code: I48.91 - UNSPECIFIED ATRIAL FIBRILLATION Status: Chronic Qualifiers: Atrial fibrillation type: paroxysmal Qualified Code(s): I48.0 - Paroxysmal atrial fibrillation (7) HLD (hyperlipidemia) SNOMED Code(s): 63667840 ICD Code: E78.5 - HYPERLIPIDEMIA, UNSPECIFIED Status: Chronic (8) HTN (hypertension) SNOMED Code(s): 07487152 ICD Code: I10 - ESSENTIAL (PRIMARY) HYPERTENSION Status: Chronic Qualifiers: Hypertension type: essential hypertension Qualified Code(s): I10 - Essential (primary) hypertension (9) Asymptomatic bacteriuria SNOMED Code(s): 625688394 ICD Code: R82.71 - BACTERIURIA Status: Acute - Patient Instructions Diet: Heart Healthy Diet Activity: As Tolerated Driving: Do Not Drive Notify Provider of: Fever, Increased Pain, Swelling and Redness, Drainage, Nausea and/or Vomiting - Discharge Plan Home Medications: Home Meds Aspirin [Cecilio Chewable Aspirin] 81 mg PO ASDIRECTED 11/02/14 [History] Furosemide [Lasix] 20 mg PO BID 11/02/14 [History] Latanoprost [Xalatan 0.005% Ophth Soln] 1 drop EYEBOTH BEDTIME 11/02/14 [History] Multivitamin [Multivitamins] 1 each PO DAILY 11/02/14 [History] Potassium Gluconate [Potassium] 595 mg PO DAILY 11/02/14 [History] Ubidecarenone [Coq-10] 100 mg PO DAILY 11/02/14 [History] atorvaSTATin [Lipitor] 20 mg PO ONETIME 11/02/14 [History] Acetaminophen [Tylenol Extra Strength] 500 mg PO Q4H PRN 09/04/16 [History] Diltiazem HCl [Diltiazem 24Hr ER] 120 mg PO DAILY 01/25/18 [History] Lansoprazole 30 mg PO DAILY 01/25/18 [History] Apixaban [Eliquis] 5 mg PO BID 90 Days #180 tablet 01/26/18 [Rx] Potassium Chloride [Klor-Con M20] 20 meq PO DAILY tab.er 01/26/18 [Rx] lisinopriL [Prinivil] 5 mg PO DAILY tablet 01/26/18 [Rx] Patient Handouts: COVID-19 Frequently Asked Questions, Urinary Tract Infection, Adult, [id number], COVID-19: How to Protect Yourself and Others - CDC, Coronavirus Information 10/13/19, Prevent the Spread of COVID-19 if You Are Sick - [facility] Referrals: Rafael Barrientos MD [Primary Care Provider] - 08/04/20 10:30 am - Discharge Summary/Plan Comment DC Time >30 min.: Yes - General Info Date of Service: 07/08/20 Subjective Update: Patient stated that she felt fine this morning and would like to go home. Denied shortness of breath, chest pain, fever, chills, nausea, abdominal pain, dizziness. - Review of Systems General: Denies: Fever, Chills Pulmonary: Denies: Shortness of Breath, Cough Cardiovascular: Reports: Dyspnea on Exertion. Denies: Chest Pain, Palpitations Gastrointestinal: Denies: Abdominal Pain, Decreased Appetite, Nausea, Vomiting Neurological: Denies: Confusion, Dizziness, Headache - Patient Data Vitals - Most Recent: Last Vital Signs Temp 96.7 F L 07/08/20 12:19 Pulse 65 07/08/20 12:19 Resp 18 07/08/20 12:19 BP 141/59 H 07/08/20 12:19 Pulse Ox 96 07/08/20 12:19 Weight - Most Recent: 151 lb I&O - Last 24 hours: Intake & Output 07/08/20 07/08/20 07/08/20 06:59 14:59 22:59 Intake Total 600 Output Total 600 Balance 0 Lab Results - Last 24 hrs: Laboratory Results - last 24 hr 07/07/20 07/07/20 07/07/20 Range/Units 10:46 19:32 21:00 WBC (4.0-11.0) K/uL RBC (4.30-5.90) M/uL Hgb (12.0-16.0) g/dL Hct (36.0-46.0) % MCV (80.0-98.0) fL MCH (27.0-32.0) pg MCHC (31.0-37.0) g/dL RDW Std Deviation (28.0-62.0) fl RDW Coeff of Emily (11.0-15.0) % Plt Count (150-400) K/uL MPV (7.40-12.00) fL Neut % (Auto) (48.0-80.0) % Lymph % (Auto) (16.0-40.0) % Bates % (Auto) (0.0-15.0) % Eos % (Auto) (0.0-7.0) % Baso % (Auto) (0.0-1.5) % Neut # (Auto) (1.4-5.7) K/uL Lymph # (Auto) (0.6-2.4) K/uL Bates # (Auto) (0.0-0.8) K/uL Eos # (Auto) (0.0-0.7) K/uL Baso # (Auto) (0.0-0.1) K/uL Nucleated RBC % /100WBC Nucleated RBCs # K/uL Sodium (136-145) mmol/L Potassium (3.5-5.1) mmol/L Chloride (98-107) mmol/L Carbon Dioxide (21.0-32.0) mmol/L BUN (7.0-18.0) mg/dL Creatinine (0.6-1.0) mg/dL Est Cr Clr Drug Dosing mL/min Estimated GFR (MDRD) ml/min Glucose (74-106) mg/dL Calcium (8.5-10.1) mg/dL Phosphorus 2.8 (2.6-4.7) mg/dL Magnesium 1.6 L (1.8-2.4) mg/dL Troponin I < 0.050 < 0.050 (0.000-0.056) ng/mL 07/08/20 07/08/20 07/08/20 Range/Units 00:10 05:32 05:32 WBC 6.07 (4.0-11.0) K/uL RBC 3.90 L (4.30-5.90) M/uL Hgb 12.8 (12.0-16.0) g/dL Hct 38.7 (36.0-46.0) % MCV 99.2 H (80.0-98.0) fL MCH 32.8 H (27.0-32.0) pg MCHC 33.1 (31.0-37.0) g/dL RDW Std Deviation 48.9 (28.0-62.0) fl RDW Coeff of Emily 14 (11.0-15.0) % Plt Count 226 (150-400) K/uL MPV 10.40 (7.40-12.00) fL Neut % (Auto) 67.3 (48.0-80.0) % Lymph % (Auto) 20.8 (16.0-40.0) % Bates % (Auto) 10.5 (0.0-15.0) % Eos % (Auto) 1.2 (0.0-7.0) % Baso % (Auto) 0.2 (0.0-1.5) % Neut # (Auto) 4.1 (1.4-5.7) K/uL Lymph # (Auto) 1.3 (0.6-2.4) K/uL Bates # (Auto) 0.6 (0.0-0.8) K/uL Eos # (Auto) 0.1 (0.0-0.7) K/uL Baso # (Auto) 0.0 (0.0-0.1) K/uL Nucleated RBC % 0.0 /100WBC Nucleated RBCs # 0 K/uL Sodium 143 (136-145) mmol/L Potassium 3.9 (3.5-5.1) mmol/L Chloride 106 (98-107) mmol/L Carbon Dioxide 28.4 (21.0-32.0) mmol/L BUN 16 (7.0-18.0) mg/dL Creatinine 0.9 (0.6-1.0) mg/dL Est Cr Clr Drug Dosing 34.83 mL/min Estimated GFR (MDRD) 59.2 ml/min Glucose 93 (74-106) mg/dL Calcium 8.7 (8.5-10.1) mg/dL Phosphorus 2.6 (2.6-4.7) mg/dL Magnesium 1.8 (1.8-2.4) mg/dL Troponin I < 0.050 (0.000-0.056) ng/mL Med Orders - Current: Current Medications Discontinued Medications Acetaminophen (Tylenol) 650 mg PO Q4H PRN PRN Reason: Pain (Mild 1-3)/fever Apixaban (Eliquis) 5 mg PO BID [facility] Last Admin: 07/08/20 09:22 Dose: 5 mg Documented by: Aspirin (Aspirin) 81 mg PO DAILY [facility] Last Admin: 07/08/20 09:21 Dose: 81 mg Documented by: Diltiazem HCl (Cardizem Cd) 120 mg PO DAILY [facility] Last Admin: 07/08/20 09:23 Dose: 120 mg Documented by: Sodium Chloride (Normal Saline) 1,000 mls @ 999 mls/hr IV BOLUS ONE Stop: 07/07/20 11:25 Last Admin: 07/07/20 10:43 Dose: 999 mls/hr Documented by: Ceftriaxone Sodium/Dextrose 1 (gm/ Premix) 50 mls @ 100 mls/hr IV Q24H [facility] Last Admin: 07/07/20 22:51 Dose: Not Given Documented by: Meropenem/Sodium Chloride 1 gm (/ Premix) 50 mls @ 100 mls/hr IV Q8H [facility] Last Admin: 07/07/20 21:53 Dose: 100 mls/hr Documented by: Meropenem/Sodium Chloride 1 gm (/ Premix) 50 mls @ 100 mls/hr IV Q12H [facility] Last Admin: 07/08/20 09:23 Dose: 100 mls/hr Documented by: Latanoprost (Xalatan 0.005% [facility]) 0 ml EYEBOTH BEDTIME [facility] Last Admin: 07/07/20 22:30 Dose: Not Given Documented by: Lisinopril (Prinivil) 5 mg PO DAILY [facility] Last Admin: 07/08/20 09:22 Dose: 5 mg Documented by: Magnesium Oxide (Magnesium Oxide) 800 mg PO ONETIME ONE Stop: 07/07/20 17:56 Last Admin: 07/07/20 21:07 Dose: 800 mg Documented by: Magnesium Oxide (Magnesium Oxide) 800 mg PO ONETIME ONE Stop: 07/08/20 07:39 Last Admin: 07/08/20 09:32 Dose: 800 mg Documented by: Oxybutynin Chloride (Oxybutynin) 2.5 mg PO DAILY [facility] Last Admin: 07/08/20 09:22 Dose: 2.5 mg Documented by: Ubidecarenone [Coq- (10] 100 Mg) 1 each PO DAILY [facility] Last Admin: 07/08/20 09:39 Dose: Not Given Documented by: Potassium Chloride (Klor-Con M20) 40 meq PO ONETIME ONE Stop: 07/07/20 17:09 Last Admin: 07/07/20 18:12 Dose: 40 meq Documented by: Potassium Chloride (Klor-Con M20) 20 meq PO ONETIME ONE Stop: 07/08/20 07:48 Last Admin: 07/08/20 09:32 Dose: 20 meq Documented by: - Exam General: Reports: Alert, Oriented Lungs: Reports: Clear to Auscultation, Normal Respiratory Effort Cardiovascular: Reports: Regular Rate, Irregular Rhythm GI/Abdominal Exam: Normal Bowel Sounds, Soft, Non-Tender Extremities: No Pedal Edema
== END 2020-07-08 14:10 | disposition home or self-care (01) ==
LOC: MW.ED 09:13 → MW.MS 16:02
PROVIDERS: ADMIT Student in an Organized Health Care Education/Training Program; ATTEND Student in an Organized Health Care Education/Training Program
DX: R30.0 Dysuria (principal); U07.1 COVID-19; N39.0 Urinary tract infection, site not specified; I48.91 Unspecified atrial fibrillation; E78.00 Pure hypercholesterolemia, unspecified; I10 Essential (primary) hypertension; M19.90 Unspecified osteoarthritis, unspecified site; R07.9 Chest pain, unspecified; Z88.2 Allergy status to sulfonamides; Z79.82 Long term (current) use of aspirin; Z79.899 Other long term (current) drug therapy
CPT/HCPCS: 36415; 71045; 80048; 80053; 81001; 83690; 83735; 84100; 84484; 85025; 87086; 93005; 93306; 96365; 99285; A9270; G0378; J2185; J7030; U0002; 93010

== ENCOUNTER 2021-11-18 19:47 | Emergency (ER) | payer MEDICARE, OTHER ==
[2021-11-18] MEDS ORDERED: hydrALAZINE 20 MG/ML SDV IVPUSH STA (21:38)
[2021-11-18] MEDS ORDERED: hydrALAZINE 20 MG/ML SDV IM STA (21:51)
[2021-11-18] MEDS ORDERED: cloNIDine 0.1 MG Tab PO STA (21:54)
[2021-11-18 23:04] VITALS: BP 183/79; PULSE 70
== END 2021-11-18 23:29 | disposition home or self-care (01) ==
LOC: MW.ED 19:47
DX: I16.0 Hypertensive urgency (principal); I48.91 Unspecified atrial fibrillation; I10 Essential (primary) hypertension; E11.9 Type 2 diabetes mellitus without complications; Z79.899 Other long term (current) drug therapy; Z88.2 Allergy status to sulfonamides
CPT/HCPCS: 99283; A9270